=== PATIENT | female | born 1945 | race Caucasian/White ===

== ENCOUNTER 2018-02-06 01:08 | Inpatient (IN) | payer OTHER ==
[~2018-02-06] VITALS: Ht 160 cm; Wt 109.1 kg
[~2018-02-06 01:08] MED LIST: ADVIL200 M2 PO; ALLOPURINOL300 M1 PO; ATORVASTATIN CA20 M1 PO; CIPRO500 M1 PO; CITALOPRAM HBR10 MG PO; CITALOPRAM HYDR10 MG PO; ENALAPRIL MALEA10 M1 PO; ENALAPRIL MALEA10 MG PO; LORAZEPAM0.5 M1 PO; MEGA BIOTIN10000 MCG PO; METRONIDAZOLE500 M1 PO; MONTELUKAST SOD10 MG PO; NYSTATIN100000 U/M PO; PANTOPRAZOLE SO40 M1 PO; PINDOLOL5 MG PO; PROPRANOLOL HCL40 M1 PO; VITAMIN D31000 UNI1 PO
[2018-02-06 01:53] LABS: ABSOLUTE BASOPHIL COUNT 0.1 /CUMM (0.0-0.2); ABSOLUTE EOSINOPHIL COUNT 0.3 /CUMM (0.0-0.7); ABSOLUTE MONOCYTE COUNT 1.2 /CUMM (0.10-0.60); BASOPHIL % 0.3 % (0.0-2.0); EOSINOPHIL % 1.5 % (0-5); GRANULOCYTE % 85.9 % (42.2-75.2); HEMATOCRIT 36.8 % (37-47); MEAN CORPUSCULAR HGB 29.7 PG (27.0-31.0); MEAN CORPUSCULAR HGB CONC 33.5 G/DL (33.0-37.0); MEAN CORPUSCULAR VOLUME 88.6 FL (81.0-99.0); MEAN PLATELET VOLUME 8.9 FL (7.4-10.4); PLATELET COUNT 276 /CUMM (130-400); RBC DISTRIBUTION WIDTH 15.1 % (11.5-14.5); RED BLOOD CELL CT 4.16 /CUMM (4.20-5.40); WHITE BLOOD CELL COUNT 17.5 /CUMM (4.8-10.8)
--- NOTE | 2018-02-06 02:17 | ED GI/GU/ABDOMINAL COMPLAINT ---
History of Present Illness General Chief Complaint: Nausea, Vomiting, Diarrhea Stated Complaint: N/V/D X4 DAYS Source: patient, family, old records Exam Limitations: no limitations Vital Signs & Intake/Output Vital Signs & Intake/Output Vital Signs Date Time Temp Pulse Resp B/P B/P Pulse O2 O2 Flow FiO2 Mean Ox Delivery Rate 02/06 0337 68/48 02/06 0252 82 18 70/38 96 Room Air 02/06 0215 81 18 64/32 Room Air 02/06 0148 99 Room Air 02/06 0130 74/64 02/06 0112 99.7 90 18 93 Room Air Allergies Coded Allergies: Penicillins (HIVES 03/08/17) Reconcile Medications Allopurinol 300 MG TABLET 1 TAB PO DAILY GOUT (Reported) Atorvastatin Calcium 20 MG TABLET 1 TAB PO DAILY CHOLESTEROL (Reported) Biotin (Keith Biotin) 10,000 MCG CAPSULE 1 CAP PO DAILY SUPPLEMENT (Reported) Cholecalciferol (Vitamin D3) (Vitamin D3) 1,000 UNIT CAPSULE 1 CAP PO DAILY SUPPLEMENT (Reported) Ciprofloxacin HCl (Cipro) 500 MG TABLET 1 TAB PO BID gall bladder infection Citalopram Hydrobromide (Citalopram HBr) 10 MG TABLET 1 TAB PO DAILY MENTAL HEALTH (Reported) Enalapril Maleate 10 MG TABLET 1 TAB PO DAILY BP (Reported) Ibuprofen (Advil) 200 MG TABLET 2 TAB PO DAILY PAIN (Reported) Lorazepam 0.5 MG TABLET 0.5 TAB PO QPM SLEEP (Reported) Metronidazole 500 MG TABLET 1 TAB PO TID GALL BLADDER INFECTION Pantoprazole Sodium 40 MG TABLET.DR 1 TAB PO DAILY GI (Reported) Propranolol HCl 40 MG TABLET 1 TAB PO DAILY BP (Reported) Triage Note: PT BIBA FROM HOME C/O DIARRHEA FOR 3X DAYS. PT A&0X3 ON ARRIVAL. PT WAS IN BED TRYING TO GET UP WITH ASSISTANCE FROM DAUGHTER TO USE THE BATHROOM AND PT WAS WEAK AND OBESE AND LOWERED HERSELF TO GROUND. -HEADSTRIKE,- LOC. Triage Nurses Notes Reviewed? yes LMP (ages 10-50): post menopausal ? n Is pt currently ? No Onset: Last week Duration: day(s):, continues in ED, intermittent, waxing and waning Timing: recent history Quality/Severity: burning, cramping, severe Radiation: no radiation Activities at Onset: Bactrim for UTI started 2 days previous Prior Abdominal Problems: none Past Sexual History: Unobtainable at this time Modifying Factors: Worsens With: eating. Associated Symptoms: diarrhea, loss of appetite, weakness HPI: 5 days prior to admission patient started Bactrim for UTI. 3 days prior to admission patient developed frequent loose watery stools whenever eating or drinking. Prior to admission family was attempting to get her up from bed to use the bathroom. She reports being weak and collapsed to floor. She denies fever chills nausea vomiting abdominal pain chest pain cough shortness of breath headache dysuria rash bleeding. Past History Travel History Traveled to [place] past 21 day No Medical History Any Pertinent Medical History? see below for history Neurological: NONE EENT: NONE Cardiovascular: hypertension, hyperlipidemia Respiratory: NONE Gastrointestinal: DIVERTICULITIS Hepatic: NONE Renal: FREQ, UTIS Musculoskeletal: OBESITY Psychiatric: NONE Endocrine: NONE Blood Disorders: NONE Cancer(s): NONE HEATING SYSTEMS INSTALLER/Reproductive: NONE History of MRSA: No History of VRE: No History of CDIFF: No Surgical History Surgical History: cataract removal Psychosocial History Who do you live with Daughter Services at Home None What is your primary language Ukrainian Tobacco Use: Never used Family History Family History, If Any: DAUGHTER Relation not specified for: Cholecystitis Hx Contributory? No Review of Systems Review of Systems Constitutional: Reports: see HPI, weakness. EENTM: Reports: no symptoms. Respiratory: Reports: no symptoms. Cardiovascular: Reports: no symptoms. GI: Reports: see HPI, diarrhea. Genitourinary: Reports: no symptoms. Musculoskeletal: Reports: no symptoms. Skin: Reports: no symptoms. Neurological/Psychological: Reports: no symptoms. Hematologic/Endocrine: Reports: no symptoms. Immunologic/Allergic: Reports: no symptoms. All Other Systems: Reviewed and Negative Physical Exam Physical Exam General Appearance: well developed/nourished, alert, awake, anxious, moderate distress, severe distress, obese Head: atraumatic, normal appearance Eyes: Bilateral: normal appearance, PERRL, EOMI, normal inspection. Ears, Nose, Throat, Mouth: hearing grossly normal, dry mucous membranes Neck: normal inspection, supple, full range of motion, normal alignment Respiratory: normal breath sounds, chest non-tender, no respiratory distress, quiet respiration, lungs clear Cardiovascular: regular rate/rhythm, normal peripheral pulses, norml femoral pulses equa Peripheral Pulses: 4+ carotid (R), 4+ carotid (L) Gastrointestinal: normal bowel sounds, soft, non-tender, no organomegaly Back: normal inspection, normal range of motion, no vertebral tenderness Extremities: normal range of motion, no ligament instability Neurologic/Psych: no motor/sensory deficits, awake, alert, oriented x 3, normal mood/affect, cmo II-XII nml as tested Skin: intact, normal color, warm/dry Core Measures ACS in differential dx? No Sepsis Present: No Sepsis Focused Exam Completed? No Progress Differential Diagnosis: diverticulitis, antibiotic-induced colitis Plan of Care: Orders Procedure Date/time Status LACTIC ACID 02/06 0652 Active Pathway - chart 02/06 06 Active TROPONIN LEVEL 02/06 06 Active CBC WITHOUT DIFFERENTIAL 02/06 614 Active BASIC ELECTROLYTES PLUS BUN&CR 02/06 06 Active CULTURE,STOOL 02/06 06 Active OVA AND PARASITE ANTIGENS 02/06 06 Active BLOOD CULTURE 02/06 0608 Active XRY-PORTABLE CHEST XRAY 02/06 0546 Active C.DIFFICILE 02/06 0544 Active Wound Care/Dressing 02/06 0503 Active Weight 02/06 0503 Active VTE Mechanical Prophylaxis 02/06 0503 Active Vital Signs 02/06 0503 Active Turn and Reposition 02/06 0503 Active Drains/Tubes 02/06 0503 Active Teach/Educate 02/06 0503 Active Skin Integrity Protocol 02/06 0503 Active Skin/Pressure Ulcer Assess (Sk 02/06 0503 Active Precautions 02/06 0503 Active Pain Treatment and Response 02/06 0503 Active Nutritional Intake, Monitor 02/06 0503 Active Isolation 02/06 0503 Active CIWA 02/06 0503 Active Patient Care Conference 02/06 0503 Active Activity/Ambulation 02/06 0503 Active LACTIC ACID 02/06 0352 Active Patient Data 02/06 0305 Active Admit to inpatient 02/06 0301 Active EKG 02/06 0232 Active Gordon, Insertion/Removal/Asses 02/06 0222 Active CULTURE,URINE 02/06 0222 Active Add-on Test (ER Only) 02/06 0216 Active TROPONIN LEVEL 02/06 0144 Complete MAGNESIUM 02/06 0130 Complete LIPASE 02/06 0130 Complete COMPREHENSIVE METABOLIC PANEL 02/06 0130 Complete CBC WITHOUT DIFFERENTIAL 02/06 0130 Complete Intake & Output 02/06 0112 Active VTE Mechanical Prophylaxis 02/06 UNK Active Current Medications Sig/Francoise Start time Last Medication Dose Stop Time Status Admin Heparin Sodium 5,000 UNIT Q8 02/06 1400 UNVr (Porcine) Metronidazole 500 MG IQ8 02/06 0800 AC (Flagyl) N/A 1 UNIT (No Carrier) Magnesium Oxide 400 MG ONE ONE 02/06 0615 UNVr (Mag-Ox) 02/06 06 Norepinephrine 4 MG Q24H 02/06 06 AC (Levophed Drip) Sodium Chloride 250 ML (Normal Saline 0.9%) Vancomycin HCl 500 MG Q6 02/06 06 AC Ceftriaxone Sodium 1,000 MG DAILY 02/06 0530 AC (Rocephin) Laboratory Tests 02/06/18 0144: Anion Gap 19 H, Estimated GFR 7 L, BUN/Creatinine Ratio 12.4, Glucose 81, Calcium 9.2, Magnesium 1.4 L, Total Bilirubin 0.3, AST 19, ALT 28, Alkaline Phosphatase 100, Troponin I < 0.01, Total Protein 6.2 L, Albumin 3.5, Globulin 2.7, Albumin/Globulin Ratio 1.3, Lipase 509 H, CBC w Diff MAN DIFF ORDERED, RBC 4.16 L, MCV 88.6, MCH 29.7, MCHC 33.5, RDW 15.1 H, MPV 8.9, Gran % 85.9 H, Lymphocytes % 5.5 L, Monocytes % 6.8, Eosinophils % 1.5, Basophils % 0.3, Absolute Granulocytes 15.0 H, Segmented Neutrophils 82 H, Band Neutrophils 2, Absolute Lymphocytes 1.0 L, Lymphocytes 10 L, Monocytes 3, Absolute Monocytes 1.2 H, Eosinophils 3, Absolute Eosinophils 0.3, Absolute Basophils 0.1, Platelet Estimate ADEQUATE, Normocytic RBCs VERIFIED, Normochromic RBCs VERIFIED Microbiology 02/07 608 STOOL: Cryptosporidium Antigen - ORD 02/07 608 STOOL: Giardia Antigen (CANDACE) - ORD 02/07 608 STOOL: Stool Culture - ORD 02/07 608 BLOOD: Blood Culture - ORD 02/07 608 BLOOD: Blood Culture - ORD 02/06 05 STOOL: Clostridium difficile Toxin A & B - ORD 02/06 0248 URINE ROUT: Urine Culture - RECD Diagnostic Imaging: Viewed by Me: CT Scan. Discussed w/RAD: CT Scan. Initial ED EKG: normal axis, normal intervals, normal p-waves, normal QRS complex, normal sinus rhythm, ST depression (diffuse) Prior EKG: changed Rhythm Strip: normal sinus rhythm Departure Departure Time of Disposition: 249 Disposition: STILL A PATIENT Condition: Stable Clinical Impression Primary Impression: Antibiotic-induced colitis Secondary Impressions: Acute hypotension, Acute myocardial ischemia, Acute renal failure, Elevated lipase, Hypomagnesemia, Hyponatremia, Leukocytosis Referrals: Lauren VERA,Handy Bee (PCP/Family) Departure Forms: Customer Survey General Discharge Information Admission Note Spoke With: Darvin Wadsworth MD Documentation of Exam: Documentation of any treatments & extenuating circumstances including Concerns Regarding Discharge (functional status, medication knowledge or non-compliance, living conditions, etc.) that warrant an admission rather than observation: IV hydration ICU monitoring serial lab exam monitor I and O medication adjustment renal evaluation physical therapy continuing care discharge planning Critical Care Note Critical Care Note Critical Care Time: 30-74 min (65)
--- NOTE | 2018-02-06 04:34 | CT SCAN REPORT ---
EXAMINATION: CT ABDOMEN AND PELVIS WITHOUT CONTRAST CLINICAL INFORMATION: UTI. Diarrhea. COMPARISON: March 09, 2017. TECHNIQUE: Contiguous axial thin section helical images of the abdomen and pelvis were performed without oral or IV contrast. The data set was reformatted in the coronal and sagittal planes and reviewed on an independent workstation. DLP: 1079 mGy-cm. FINDINGS: There is mild dependent bibasilar atelectasis. The visualized lung bases are otherwise clear. The visualized portions of the heart are unremarkable. The liver is of normal size and attenuation without focal lesions nor intrahepatic biliary ductal dilation. The patient is status post cholecystectomy. Surgical clips are present. The spleen, pancreas, adrenal glands are unremarkable. Both kidneys are of normal size and attenuation without hydronephrosis or nephrolithiasis. There is no abdominal free fluid. There is neither mesenteric nor retroperitoneal lymphadenopathy. There is colonic diverticulosis with fat stranding identified about the ascending colon, hepatic flexure, splenic flexure and proximal descending colon. Otherwise, unremarkable unopacified loops of small and large bowel are identified. There is no pelvic free fluid. Urinary bladder is partially filled with a Gordon catheter in place. There is neither pelvic nor inguinal lymphadenopathy. Bone windows: Neither sclerotic nor lytic bone lesions are identified. IMPRESSION: Colonic diverticulosis and diverticulitis without drainable fluid collections. Status post cholecystectomy.
--- NOTE | 2018-02-06 05:33 | Procedure ---
Dayami Ojeda 02/06/18 0532: Minor Surgical Procedure Note Date of Procedure: 02/06/18 Procedure Note: Indication: Hemodynamic monitoring/Intravenous access Technique: A time-out was completed verifying correct patient, procedure, site, positioning , and special equipment if applicable. The patient was placed in a dependent position appropriate for central line placement based on the vein to be cannulated. The patients right neck was prepped and draped in sterile fashion. 1% Lidocaine was used to anesthetize the surrounding skin area. A triple lumen 7 -Kitt[place] x 20 cm was introduced into the the internal jugular vein using the Seldinger technique under ultrasound guidance. The catheter was threaded smoothly over the guide wire and appropriate blood return was obtained. Each lumen of the catheter was evacuated of air and flushed with sterile saline. The catheter was then sutured in place to the skin and a sterile dressing applied. Perfusion to the extremity distal to the point of catheter insertion was checked and found to be adequate. Thierry Crow, supervised the entire procedure. Estimated Blood Loss: minimum The patient tolerated the procedure well and there were no complications. Thierry Arango 02/11/18 0954: Minor Surgical Procedure Note Procedure Note: R IJ triple-lumen catheter placed under my supervision with direct visualization using ultrasound. No complications. No pneumothorax. Postprocedural x-ray shows the right IJ catheter is in appropriate position, there is no pneumothorax. No significant hematoma on exam. Patient tolerated well without complications. Discussed with Dr. Taylor
--- NOTE | 2018-02-06 05:36 | History & Physical ---
Virgil Sparrow 02/06/18 0535: General Information and HPI MD Statement: I have seen and personally examined VANNESA FRAUSTO and documented this H&P. The patient is a 72 year old F who presented with a patient stated chief complaint of [diarrhea and hypotension]. Source of Information: patient, family Exam Limitations: no limitations, clinical condition History of Present Illness: The patient is a 72 years old lady who has a PMHx of HTN, HLP, multiple UTIs, and Diverticulitis and his here because of diarrhea and hypotension that aggreviated today. She was diagnosed with UTI and started Bactrim from 5 days ago, She had diarrhea from 3 days ago. She had ongoing severe diarrhea all day for the last two days. Her status worsened from this morning, she had dizziness and was lightheaded. So her daughter brought her in for evaluation. She had BP of 68/48 in ER after being hydrated with 6 litters with bilateral large bore lines. So a central line was inserted for her. She was started Levophed. She denies any abdominal pain, N/V, or fever. She reports intermittent chills. PMHx: HTN, HLP, Diverticulosis, Recurrrent UTI, Labs: Na: 128, K: 4.6 BUN: 73, Cr: 5.9 Lipase: 509 Allergies/Medications Home Med list Allopurinol 300 MG TABLET 1 TAB PO DAILY GOUT (Reported) Atorvastatin Calcium 20 MG TABLET 1 TAB PO DAILY CHOLESTEROL (Reported) Biotin (Keith Biotin) 10,000 MCG CAPSULE 1 CAP PO DAILY SUPPLEMENT (Reported) Cholecalciferol (Vitamin D3) (Vitamin D3) 1,000 UNIT CAPSULE 1 CAP PO DAILY SUPPLEMENT (Reported) Ciprofloxacin HCl (Cipro) 500 MG TABLET 1 TAB PO BID gall bladder infection Citalopram Hydrobromide (Citalopram HBr) 10 MG TABLET 1 TAB PO DAILY MENTAL HEALTH (Reported) Enalapril Maleate 10 MG TABLET 1 TAB PO DAILY BP (Reported) Ibuprofen (Advil) 200 MG TABLET 2 TAB PO DAILY PAIN (Reported) Lorazepam 0.5 MG TABLET 0.5 TAB PO QPM SLEEP (Reported) Metronidazole 500 MG TABLET 1 TAB PO TID GALL BLADDER INFECTION Pantoprazole Sodium 40 MG TABLET.DR 1 TAB PO DAILY GI (Reported) Propranolol HCl 40 MG TABLET 1 TAB PO DAILY BP (Reported) Compliance With Home Meds: GOOD Past History Travel History Traveled to [place] past 21 day No Medical History Neurological: NONE EENT: NONE Cardiovascular: hypertension, hyperlipidemia Respiratory: NONE Gastrointestinal: DIVERTICULITIS Hepatic: NONE Renal: FREQ, UTIS Musculoskeletal: OBESITY Psychiatric: NONE Endocrine: NONE Blood Disorders: NONE Cancer(s): NONE PLASTIC PRINTER/Reproductive: NONE History of MRSA: No History of VRE: No History of CDIFF: No Surgical History Surgical History: cataract removal Past Family/Social History Family History Relations & Conditions if any DAUGHTER Relation not specified for: Cholecystitis Psychosocial History Services at Home: None Functional Ability ADLs Independent: dressing, eating, toileting, bathing. Ambulation: independent Sexual History Past Sexual History Unobtainable at this time Review of Systems Review of Systems Constitutional: Reports: see HPI. EENTM: Reports: see HPI. Cardiovascular: Reports: see HPI. Respiratory: Reports: see HPI. GI: Reports: see HPI. Genitourinary: Reports: see HPI. Musculoskeletal: Reports: see HPI. Skin: Reports: see HPI. Neurological/Psychological: Reports: see HPI. Hematologic/Endocrine: Reports: see HPI. Immunologic/Allergic: Reports: see HPI. Exam & Diagnostic Data Last 24 Hrs of Vital Signs/I&O Vital Signs Date Time Temp Pulse Resp B/P B/P Pulse O2 O2 Flow FiO2 Mean Ox Delivery Rate 02/06 0337 68/48 02/06 0252 82 18 70/38 96 Room Air 02/06 0215 81 18 64/32 Room Air 02/06 0148 99 Room Air 02/06 0130 74/64 02/06 0112 99.7 90 18 93 Room Air Intake & Output 02/06 1600 02/06 0800 02/06 0000 Intake Total Output Total Balance Patient 350 lb Weight Weight Estimated Measurement Method Physical Exam General Appearance Alert, Oriented X3, Cooperative, Moderate Distress Skin No Rashes, No Breakdown Skin Temp/Moisture Exam: Cool/Dry Sepsis Skin Exam (color): Normal for Ethnicity, Pale HEENT Atraumatic, PERRLA, EOMI Neck Supple, No JVD, No LAD Cardiovascular Regular Rate, Normal S1, Normal S2 Lungs Clear to Auscultation, Normal Air Movement Abdomen Normal Bowel Sounds, Soft, No Tenderness Neurological Normal Speech Extremities No Clubbing, No Cyanosis (Weak pulses) Sepsis Peripheral Pulse Location: Dorsalis Pedis Sepsis Peripheral Pulse Exam: Weak Sepsis Cap Refill Exam: >2 sec Assessment/Plan Assessment: Ms. Frausto is a 72 years old lady with PMHx of recurrent UTIs, HTN, and HLP who was here with severe diarrhea and hypotension. Since her diarrhea was started after using bactrim presumably the diagnosis is fulminant C diff, But since she has sepsis symptoms she should be also emperically treated with IV ceftriaxone, Metronidazole and PO Vancomycin. The increase in her Lipase and Cr and BUN is most probably due to hypoperfusion ischemia caused in her multiple systems. She should be aggressively hydrated and closely monitored in the ICU. Central line was placed for her and levophed was started for her. Pancultures should be sent and once she is stable Abd CT should be done for her. She also has T inv in inf Leads (II, III, avf) and ant. leads (V2-6) which is due to ischemia caused by hypoperfusion, so we will do serial ECGs and Trops as well. Hopefully her condition will improve with aggressive hydration and levephed and antibiotic treatment. As Ranked By This Provider Problem List: 1. Acute renal failure 2. Hypomagnesemia 3. Hyponatremia 4. Antibiotic-induced colitis 5. Elevated lipase 6. Acute myocardial ischemia 7. Acute hypotension 8. Sepsis Core Measures/Misc (04/04) Acute Coronary Syndrome ACS Diagnosis: Yes No Beta-Gene d/t Hypotension Congestive Heart Failure Congestive Heart Failure Diagnosis No Cerebrovascular Accident CVA/TIA Diagnosis: No VTE (View Protocol) VTE Risk Factors Age>40 No Mechanical VTE Prophylaxis d/t N/A MechProphylax Ordered No VTE Pharm Prophylaxis d/t NA PharmProphylax ordered Sepsis (View protocol) Sepsis Present: Yes If YES complete Sepsis Event Note If YES complete Sepsis Event Note Dayami Ojeda 02/06/18 0602: Core Measures/Misc (04/04) Acute Coronary Syndrome ACS Diagnosis: No Congestive Heart Failure Congestive Heart Failure Diagnosis No Cerebrovascular Accident CVA/TIA Diagnosis: No VTE (View Protocol) VTE Risk Factors Age>40 No Mechanical VTE Prophylaxis d/t N/A MechProphylax Ordered No VTE Pharm Prophylaxis d/t NA PharmProphylax ordered Sepsis (View protocol) Sepsis Present: Yes If YES complete Sepsis Event Note If YES complete Sepsis Event Note Inpatient Sepsis Exam Sepsis Cardiac Exam: Regular Rate/Rhythm Sepsis Resp Exam: CTA Sepsis Cap Refill Exam: <2 Sec Sepsis Peripheral Pulse Exam: Normal Sepsis Peripheral Pulse Location: Radial Sepsis Skin Color Exam: Normal for Ethnicity Skin Temp/Moisture Exam: Cool/Dry Resident Review Statement Resident Statement: examined this patient, discussed with grad intern, agreed with grad intern Other Findings: Patient is 72-year-old female with past medical history of hypertension, hyperlipidemia, diverticulitis, recurrent UTIs, was brought in by family with a chief complaint of severe diarrhea since past 3 days. Patient stated that she was in her usual state of health until last week when she developed symptoms of burning micturition, urgency and hesitancy. She went to her primary care physician and was given Bactrim which was on 02/01/18. Patient states that 2 days after that, she developed severe diarrhea and she was going the entire day. Last night the patient felt dizzy and lightheaded however did not fell. So her daughter brought her in today for diarrhea and weakness. Patient denies any abdominal discomfort, nausea or vomiting. She does report of intermittent chills however denies any fever. Patient continued to be hypotensive while in ER, she came in with a blood pressure 74/64, and the lowest she went to was 54/27, at that time a decision was made to put in a triple-lumen IN her for Levophed. Patient had a CT abdomen and pelvis which was significant for Colonic diverticulosis and diverticulitis without drainable fluid collections. Assessment and plan. Patient developed diarrhea 2 days after taking Bactrim for UTI, her diarrhea could be secondary to C. difficile caused by antibiotic. Will check her stool C. difficile, patient is very hypotensive and has elevated creatinine of 5.9, and leukocytosis of 17.5, she falls into the category of severe C. difficile. After confirming the position of central line, will start her on Levophed to maintain a systolic blood pressure greater than 90. We'll also send stool for ova culture and parasites. Will get blood but cultures into 2. Will start her on by mouth vancomycin and IV metronidazole. Patient also has underlying UTI, will start her on ceftriaxone for that. Although the patient is allergic to penicillin, but she has tolerated ceftriaxone well in the past. ID consult in a.m. for severe C. difficile. Lactic acid is still pending. On EKG, patient had diffuse ST depression on her EKG, however her first set of troponin is negative. We'll continue to trend her EKG and troponin for total of [address] depression could be due to demand ischemia caused by severe hypotension. Patient is in acute kidney injury, with an elevated creatinine of 5.9, she's also oliguric, her baseline creatinine is 0.8, currently she is mentating well and does not fall into any category of emergent dialysis, will get renal consult in a.m. and continue to follow her creatinine closely. Patient also had elevated lipase, CT abdomen that was done showed unremarkable pancreas, will continue to hydrate her in follow-up. She got 8 L of IV fluid so far for her hypotension. DVT prophylaxis subcutaneous heparin Patient is full code. Darvin Wadsworth MD 02/06/18 0744: General Information and HPI MD Statement: I have seen and personally examined VANNESA FRAUSTO and documented this H&P. The patient is a 72 year old F who presented with a patient stated chief complaint of [diarrhea and hypotension]. Source of Information: patient, family Exam Limitations: no limitations Allergies/Medications Allergies: Coded Allergies: Penicillins (HIVES 03/08/17) Past History Medical History Cardiovascular: hypertension, hyperlipidemia Gastrointestinal: DIVERTICULITIS Renal: FREQ, UTIS Musculoskeletal: OBESITY Psychiatric: anxiety, depression Surgical History Surgical History: cholecystectomy, cataract removal Past Family/Social History Psychosocial History Smoking Status: Never Smoked ETOH Use: denies use Illicit Drug Use: denies illicit drug use Employment History Employment Retired Review of Systems Review of Systems Constitutional: Denies: see HPI. Exam & Diagnostic Data Last 24 Hrs of Vital Signs/I&O Vital Signs Date Time Temp Pulse Resp B/P B/P Pulse O2 O2 Flow FiO2 Mean Ox Delivery Rate 02/06 0337 68/48 02/06 0252 82 18 70/38 96 Room Air 02/06 0215 81 18 64/32 Room Air 02/06 0148 99 Room Air 02/06 0130 74/64 02/06 0112 99.7 90 18 93 Room Air Intake & Output 02/06 0800 02/06 0000 02/05 1600 Intake Total Output Total Balance Patient 350 lb Weight Weight Estimated Measurement Method Physical Exam General Appearance Alert, Oriented X3, Cooperative, Moderate Distress Skin No Rashes, No Breakdown Skin Temp/Moisture Exam: Warm/Dry Sepsis Skin Exam (color): Normal for Ethnicity HEENT Atraumatic, PERRLA, EOMI Neck Supple, No JVD Lymphatic Axillary nl, Cervical nl Cardiovascular Regular Rate, Normal S1, Normal S2 Lungs Clear to Auscultation, Normal Air Movement Abdomen Soft, No Tenderness Neurological Normal Speech Extremities No Clubbing, No Cyanosis Sepsis Peripheral Pulse Location: Dorsalis Pedis Sepsis Peripheral Pulse Exam: Weak Sepsis Cap Refill Exam: <2 Sec Last 24 Hrs of Labs/Brennan: Laboratory Tests 02/06/18624: Lactic Acid 0.7 02/06/18624: Anion Gap 14, Estimated GFR 11 L, BUN/Creatinine Ratio 14.0, Troponin I < 0.01, CBC w Diff NO MAN DIFF REQ, RBC 3.64 L, MCV 89.1, MCH 29.6, MCHC 33.2, RDW 15.6 H, MPV 8.6, Gran % 89.1 H, Lymphocytes % 6.2 L, Monocytes % 3.8, Eosinophils % 0.6, Basophils % 0.3, Absolute Granulocytes 12.3 H, Absolute Lymphocytes 0.9 L, Absolute Monocytes 0.5, Absolute Eosinophils 0.1, Absolute Basophils 0 02/06/18 0144: Anion Gap 19 H, Estimated GFR 7 L, BUN/Creatinine Ratio 12.4, Glucose 81, Calcium 9.2, Magnesium 1.4 L, Total Bilirubin 0.3, AST 19, ALT 28, Alkaline Phosphatase 100, Troponin I < 0.01, Total Protein 6.2 L, Albumin 3.5, Globulin 2.7, Albumin/Globulin Ratio 1.3, Lipase 509 H, CBC w Diff MAN DIFF ORDERED, RBC 4.16 L, MCV 88.6, MCH 29.7, MCHC 33.5, RDW 15.1 H, MPV 8.9, Gran % 85.9 H, Lymphocytes % 5.5 L, Monocytes % 6.8, Eosinophils % 1.5, Basophils % 0.3, Absolute Granulocytes 15.0 H, Segmented Neutrophils 82 H, Band Neutrophils 2, Absolute Lymphocytes 1.0 L, Lymphocytes 10 L, Monocytes 3, Absolute Monocytes 1.2 H, Eosinophils 3, Absolute Eosinophils 0.3, Absolute Basophils 0.1, Platelet Estimate ADEQUATE, Normocytic RBCs VERIFIED, Normochromic RBCs VERIFIED Microbiology 02/07 608 STOOL: Cryptosporidium Antigen - ORD 07/22 0608 STOOL: Giardia Antigen (BRENNAN) - ORD 02/06 0608 STOOL: Stool Culture - ORD 02/06 0608 BLOOD: Blood Culture - ORD 02/06 0608 BLOOD: Blood Culture - ORD 02/06 0544 STOOL: Clostridium difficile Toxin A & B - ORD 02/06 0248 URINE ROUT: Urine Culture - RECD Core Measures/Misc (04/04) Sepsis (View protocol) If YES complete Sepsis Event Note If YES complete Sepsis Event Note Attending MD Review Statement Attending Statement Attending MD Statement: examined this patient, discuss w/resident/PA/AERIAL SURVEY TECHNICIAN, agreed w/resident/PA/AERIAL SURVEY TECHNICIAN, amended to note Attending Assessment/Plan: This patient is a 72-year-old white female with a significant past medical history for hypertension, lipidemia, diverticulosis, gout, depression/anxiety and osteo-arthritis. She presented to the emergency department with a four-day history of nausea vomiting diarrhea. She was started on Bactrim 5 days prior to admission for urinary tract infection. She then developed frequent loose watery stools. Upon evaluation in the emergency department she was found to have an elevated white blood cell count to 17.5 and significant hypotension. Her BUN is 73 and creatinine is 5.9. Lactic acid is pending. CT scan of her abdomen demonstrates colonic diverticulosis and diverticulitis without drainable fluid collections. The patient was given a dose of ceftriaxone and started on fulminant C. difficile protocol with IV metronidazole and oral vancomycin. Cultures pending. Currently in the unit with a central line placed this am.
[2018-02-06 06:34] LABS: ABSOLUTE BASOPHIL COUNT 0 /CUMM (0.0-0.2); ABSOLUTE EOSINOPHIL COUNT 0.1 /CUMM (0.0-0.7); ABSOLUTE GRANULOCYTE CT 12.3 /CUMM (1.4-6.5); ABSOLUTE LYMPH COUNT 0.9 /CUMM (1.2-3.4); ABSOLUTE MONOCYTE COUNT 0.5 /CUMM (0.10-0.60); BASOPHIL % 0.3 % (0.0-2.0); EOSINOPHIL % 0.6 % (0-5); GRANULOCYTE % 89.1 % (42.2-75.2); HEMATOCRIT 32.4 % (37-47); MEAN CORPUSCULAR HGB 29.6 PG (27.0-31.0); MEAN CORPUSCULAR HGB CONC 33.2 G/DL (33.0-37.0); MEAN CORPUSCULAR VOLUME 89.1 FL (81.0-99.0); MEAN PLATELET VOLUME 8.6 FL (7.4-10.4); PLATELET COUNT 224 /CUMM (130-400); RBC DISTRIBUTION WIDTH 15.6 % (11.5-14.5); RED BLOOD CELL CT 3.64 /CUMM (4.20-5.40)
[2018-02-06 07:02] LABS: WHITE BLOOD CELL COUNT 13.8 /CUMM (4.8-10.8)
--- NOTE | 2018-02-06 07:14 | RADIOLOGY REPORT ---
EXAMINATION: XR PORTABLE CHEST CLINICAL INFORMATION: Check central line position COMPARISON: Previous chest x-ray February 2017 TECHNIQUE: Portable frontal view of the chest was obtained. FINDINGS: The cardiac and mediastinal contours are normal. There is a right jugular line with tip projecting over the SVC. The lungs are clear. There is no pleural effusion or pneumothorax. IMPRESSION: Satisfactory position of right jugular line.
[2018-02-06 08:00] VITALS: BP 80/50
--- NOTE | 2018-02-06 08:32 | PN- Resident CRCU ---
Subjective HPI/CRCU Issues: Suspected C.diff diarrhea 24 Hour Events: A central line was placed on arrival to the ICU due to hypotension refractory to IVF resuscitation. Currently on Levophed @ 7mcg/hr. Continues to have loose bowel movements. States she had 3-4 episdoes since she came to the hospital. Objective Vital Signs & I&O Last 8 Hrs of Vitals and I&O: Intake & Output 02/06 1600 Intake Total Output Total Balance Patient 240 lb Weight Weight Bed scale Measurement Method Exam General Appearance: alert, awake, comfortable, mild distress Head: atraumatic, normal appearance Respiratory: normal breath sounds, chest non-tender Cardiovascular: regular rate/rhythm Gastrointestinal: soft, non-tender Extremities: no edema Cranial Nerves: normal hearing, normal speech Skin: intact, normal color Skin Temp/Moisture Exam: Warm/Dry Sepsis Skin Exam (color): Normal for Ethnicity Current Medications: Current Medications Sig/Francoise Start time Last Medication Dose Route Stop Time Status Admin Ceftriaxone Sodium 1,000 MG DAILY 02/06 0530 DC 02/06 IV 0918 Heparin Sodium 5,000 UNIT Q8 02/06 1400 AC (Porcine) SC Insulin Aspart 0 TIDAC 02/06 1200 AC SC Magnesium Oxide 400 MG ONE ONE 02/06 0615 DC 02/06 PO 02/06 0616 0922 Metronidazole 500 MG IQ8 02/06 0800 AC 02/06 N/A 1 UNIT IV 0917 Norepinephrine 4 MG Q24H 02/06 0600 AC 02/06 Sodium Chloride 250 ML IV 0918 Sodium Chloride 1,000 ML BOLUS ONE 02/06 0330 DC 02/06 IV 02/06 0429 0342 Sodium Chloride 1,000 ML BOLUS ONE 02/06 0330 DC 02/06 IV 02/06 0429 0342 Sodium Chloride 1,000 ML BOLUS ONE 02/06 0300 DC 02/06 IV 02/06 0359 0304 Sodium Chloride 1,000 ML BOLUS ONE 02/06 0300 DC 02/06 IV 02/06 0359 0304 Sodium Chloride 1,000 ML BOLUS ONE 02/06 0230 DC 02/06 IV 02/06 0329 0233 Sodium Chloride 1,000 ML BOLUS ONE 02/06 0230 DC 02/06 IV 02/06 0329 0233 Sodium Chloride 1,000 ML BOLUS ONE 02/06 0130 DC 02/06 IV 02/06 0229 0149 Sodium Chloride 1,000 ML BOLUS ONE 02/06 0130 DC 02/06 IV 02/06 0229 0149 Vancomycin HCl 500 MG Q6 02/06 0600 AC 02/06 PO 0917 Impression/Plan Impression/Problem List Impression: 72-year-old female with past medical history of hypertension, hyperlipidemia, diverticulitis, recurrent UTIs was brought in by family with chief complaint of severe diarrhea since past 3-4 days. Assessment: 1. Sepsis - Hypotension requiring pressors, leukocytosis with likely C.diff infection 2. Suspected C.diff 3. Non-anion gap metabolic acidosis likely due to diarrhea 4. JASMEET - likely due to dehydration and lisinopril 5. Hyponatremia - improving 6. History of Hypertension and Hyperlipidemia Plan: * Continue monitoring in the ICU for now. * No need for further IVF. Patient already received 8L of NS since admission. Her CVP is 12. Her urine output is good. If urine output drops can start her on IVF with NS @ 75ml/hr * Continue Norepinephrine and taper down as tolerated. * Await C.diff results. If negative will pursue PCR due to high suspicion of C.diff. * Follow up blood cultures. * Continue oral Vancomycin 500mg q6 and IV metronidazole 500mg q8. * Start Bicarb drip 150meq in D5W. Will bolus 500cc and continue it on 75ml/hr then. * Hold lisinopril * Trend renal function * Diet: Regular * DVT Prophylaxis: SC Heparin * Code Status: Full Code Problem List: 1. Sepsis Pain Ratin Tomorrow's Labs & Rationales: CBC, ICU bundle Plan DVT/Prophylaxis: mechanical, pharmacological
--- NOTE | 2018-02-06 11:30 | PN- CRCU ---
Subjective HPI/Critical Care Issues: The patient is a 72 years old lady who has a PMHx of HTN, HLP, multiple UTIs, and Diverticulitis and his here because of diarrhea and hypotension that aggreviated today. She was diagnosed with UTI and started Bactrim from 5 days ago, She had diarrhea from 3 days ago. She had ongoing severe diarrhea all day for the last two days. Her status worsened from this morning, she had dizziness and was lightheaded. So her daughter brought her in for evaluation. She had BP of 68/48 in ER after being hydrated with 6 litters with bilateral large bore lines. So a central line was inserted for her. She was started Levophed. She denies any abdominal pain, N/V, or fever. She reports intermittent chills. In the unit she continues to be on levofed and has diarrhea and now appears to be resusitated and improved with adequate urine out put Objective Current Medications: Current Medications Sig/Francoise Start time Last Medication Dose Route Stop Time Status Admin Ceftriaxone Sodium 1,000 MG DAILY 02/06 0530 AC 02/06 IV 0918 Heparin Sodium 5,000 UNIT Q8 02/06 1400 AC (Porcine) SC Magnesium Oxide 400 MG ONE ONE 02/06 0615 DC 02/06 PO 02/06 0616 0922 Metronidazole 500 MG IQ8 02/06 0800 AC 02/06 N/A 1 UNIT IV 0917 Norepinephrine 4 MG Q24H 02/06 0600 AC 02/06 Sodium Chloride 250 ML IV 0918 Sodium Chloride 1,000 ML BOLUS ONE 02/06 0330 DC 02/06 IV 02/06 0429 0342 Sodium Chloride 1,000 ML BOLUS ONE 02/06 0330 DC 02/06 IV 02/06 0429 0342 Sodium Chloride 1,000 ML BOLUS ONE 02/06 0300 DC 02/06 IV 02/06 0359 0304 Sodium Chloride 1,000 ML BOLUS ONE 02/06 0300 DC 02/06 IV 02/06 0359 0304 Sodium Chloride 1,000 ML BOLUS ONE 02/06 0230 DC 02/06 IV 02/06 0329 0233 Sodium Chloride 1,000 ML BOLUS ONE 02/06 0230 DC 02/06 IV 02/06 0329 0233 Sodium Chloride 1,000 ML BOLUS ONE 02/06 0130 DC 02/06 IV 02/06 0229 0149 Sodium Chloride 1,000 ML BOLUS ONE 02/06 0130 DC 07/22 IV 02/06 0229 0149 Vancomycin HCl 500 MG Q6 02/06 0600 AC 02/06 PO 0917 Vital Signs & I&O Last 24 Hrs of Vitals and I&O: Vital Signs Date Time Temp Pulse Resp B/P B/P Pulse O2 O2 Flow FiO2 Mean Ox Delivery Rate 02/06 0918 81 80/40 02/06 0800 96.8 84 22 80/50 99 Room Air 02/06 0337 68/48 02/06 0252 82 18 70/38 96 Room Air 02/06 0215 81 18 64/32 Room Air 02/06 0148 99 Room Air 02/06 0130 74/64 02/06 0112 99.7 90 18 93 Room Air Intake & Output 02/06 1600 02/06 0800 02/06 0000 Intake Total 8000 Output Total 200 Balance 7800 Intake, IV 8000 Output, Urine 200 Patient 240 lb 240 lb Weight Weight Bed scale Bed scale Measurement Method Impression/Plan Impression/Plan Impression/Plan: General Appearance Alert, Oriented X3, Cooperative, Moderate Distress Skin No Rashes, No Breakdown Skin Temp/Moisture Exam: Cool/Dry Sepsis Skin Exam (color): Normal for Ethnicity, Pale HEENT Atraumatic, PERRLA, EOMI, tle in place Neck Supple, No JVD, No LAD Cardiovascular Regular Rate, Normal S1, Normal S2 Lungs Clear to Auscultation, Normal Air Movement Abdomen Normal Bowel Sounds, Soft, No Tenderness Neurological Normal Speech Extremities No Clubbing, No Cyanosis (Weak pulses) This patient is a 72-year-old white female with a significant past medical history for hypertension, lipidemia, diverticulosis, gout, depression/anxiety and osteo-arthritis. She presented to the emergency department with a four-day history of nausea vomiting diarrhea. She was started on Bactrim 5 days prior to admission for urinary tract infection. She then developed frequent loose watery stools. Upon evaluation in the emergency department she was found to have an elevated white blood cell count to 17.5 and significant hypotension. Her BUN is 73 and creatinine is 5.9. Lactic acid is pending. CT scan of her abdomen demonstrates colonic diverticulosis and diverticulitis without drainable fluid collections. The patient was given a dose of ceftriaxone and started on fulminant C. difficile protocol with IV metronidazole and oral vancomycin. Cultures pending. Currently in the unit with a central line placed this am. ISSUES Ongoing diarrhea highly suggestive of C. difficile, with sepsis, hypotension and multiple organ dysfunction Acute renal failure due to dehydration/ diarrhea/ compounded by RASS issues (pt was on lisinopril) History of diverticulosis with no significant diverticulitis History of anxiety and depression which appears stable Significant anion gap acidosis with no significant lactic acidosis probably related to profound diarrhea Diabetes Anemia of unknown etiology History of hypertension, hyperlipidemia, recurrent UTI in the past Morbid obesity with severe DJD pending knee replacement PLAN/RECOMMENDATION Continue IV fluids Check CVP At the CVP is more than 12 and reduce his IV fluids Reduce norepinephrine to keep mean arterial pressure more than 65 Await cultures Hold ceftriaxone Fingerstick glucose and cover with sliding scale Hold PEREZ inhibitor and other antihypertensives We will follow closely Patient critically ill total time spent 38 minutes
--- NOTE | 2018-02-06 12:31 | Cons- Nephrology ---
General Information and HPI Consulting Request Date of Consult: 02/06/18 Requested By: Darvin Wadsworth MD Reason for Consult: JASMEET & met acid Source of Information: patient, old records Exam Limitations: no limitations History of Present Illness: 72 yr old WF w mult med problems including obesity, HTN, & DJD admit this morning w ~ 5 days intractable diarrhea after oral antibiotic for presumed lower UTI. Found hypotensive requiring volume reuscitation & IV NE as started on Flagyl for presumed C dif colitis. Baseline normal renal function w Cr 0.8 in 2017 & found increasd 5.9 associated w hyponatremia & met acid. Hemodynamics improving w increasing u/o now. Outpt meds included ACEI but denies NSAIDs despite on home med list --> stopped ibuprofen ~ 2 weeks ago in anticippation of upcoming knee replacement. No record IV contrast. Now awake w/o uremic sx. No SOB. Has hx lower UTIs but no clear hx of previous pyelo or stones. No DM. Allergies/Medications Allergies: Coded Allergies: Penicillins (HIVES 03/08/17) Home Med List: Allopurinol 300 MG TABLET 1 TAB PO DAILY GOUT (Reported) Atorvastatin Calcium 20 MG TABLET 1 TAB PO DAILY CHOLESTEROL (Reported) Biotin (Keith Biotin) 10,000 MCG CAPSULE 1 CAP PO DAILY SUPPLEMENT (Reported) Cholecalciferol (Vitamin D3) (Vitamin D3) 1,000 UNIT CAPSULE 1 CAP PO DAILY SUPPLEMENT (Reported) Ciprofloxacin HCl (Cipro) 500 MG TABLET 1 TAB PO BID gall bladder infection Citalopram Hydrobromide (Citalopram HBr) 10 MG TABLET 1 TAB PO DAILY MENTAL HEALTH (Reported) Enalapril Maleate 10 MG TABLET 1 TAB PO DAILY BP (Reported) Ibuprofen (Advil) 200 MG TABLET 2 TAB PO DAILY PAIN (Reported) Lorazepam 0.5 MG TABLET 0.5 TAB PO QPM SLEEP (Reported) Metronidazole 500 MG TABLET 1 TAB PO TID GALL BLADDER INFECTION Pantoprazole Sodium 40 MG TABLET.DR 1 TAB PO DAILY GI (Reported) Propranolol HCl 40 MG TABLET 1 TAB PO DAILY BP (Reported) Current Medications: Current Medications Sig/Francoise Start time Last Medication Dose Route Stop Time Status Admin Ceftriaxone Sodium 1,000 MG DAILY 02/06 0530 DC 02/06 IV 0918 Heparin Sodium 5,000 UNIT Q8 02/06 1400 AC (Porcine) SC Insulin Aspart 0 TIDAC 02/06 1200 AC SC Magnesium Oxide 400 MG ONE ONE 02/06 0615 DC 02/06 PO 02/06 0616 0922 Metronidazole 500 MG IQ8 02/06 0800 AC 02/06 N/A 1 UNIT IV 0917 Norepinephrine 4 MG Q24H 02/06 0600 AC 02/06 Sodium Chloride 250 ML IV 0918 Sodium Bicarbonate 150 MEQ ONCE ONE 02/06 1215 AC Dextrose/Water 1,000 ML IV 02/06 1414 Sodium Bicarbonate 150 MEQ Q13H 02/06 1215 AC Dextrose/Water 1,000 ML IV Sodium Chloride 1,000 ML BOLUS ONE 02/06 0330 DC 02/06 IV 02/06 0429 0342 Sodium Chloride 1,000 ML BOLUS ONE 02/06 0330 DC 02/06 IV 02/06 0429 0342 Sodium Chloride 1,000 ML BOLUS ONE 02/06 0300 DC 02/06 IV 02/06 0359 0304 Sodium Chloride 1,000 ML BOLUS ONE 02/06 0300 DC 02/06 IV 02/06 0359 0304 Sodium Chloride 1,000 ML BOLUS ONE 02/06 0230 DC 02/06 IV 02/06 0329 0233 Sodium Chloride 1,000 ML BOLUS ONE 02/06 0230 DC 02/06 IV 02/06 0329 0233 Sodium Chloride 1,000 ML BOLUS ONE 02/06 0130 DC 02/06 IV 02/06 0229 0149 Sodium Chloride 1,000 ML BOLUS ONE 02/06 0130 DC 02/06 IV 02/06 0229 0149 Vancomycin HCl 500 MG Q6 02/06 0600 AC 02/06 PO 1157 Review of Systems Review of Systems Constitutional: Reports: weakness. EENTM: Reports: no symptoms. Cardiovascular: Reports: no symptoms. Respiratory: Reports: no symptoms. GI: Reports: diarrhea. Genitourinary: Reports: no symptoms. Musculoskeletal: Reports: joint pain. Skin: Reports: no symptoms. Neurological/Psychological: Reports: no symptoms. Hematologic/Endocrine: Reports: no symptoms. Immunologic/Allergic: Reports: no symptoms. 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 Home Services at Home: None Smoking Status: Never Smoked ETOH Use: denies use Illicit Drug Use: denies illicit drug use Functional Ability ADLs Independent: dressing, eating, toileting, bathing. Ambulation: independent Employment History Employment: Retired Exam & Diagnostic Data Vital Signs and I&O Vital Signs Date Time Temp Pulse Resp B/P B/P Pulse O2 O2 Flow FiO2 Mean Ox Delivery Rate 02/06 0918 81 80/40 02/06 0800 96.8 84 22 80/50 99 Room Air 02/06 0337 68/48 02/06 0252 82 18 70/38 96 Room Air 02/06 0215 81 18 64/32 Room Air 02/06 0148 99 Room Air 02/06 0130 74/64 02/06 0112 99.7 90 18 93 Room Air Intake & Output 02/06 1600 02/06 0400 02/05 1600 02/05 0400 02/04 1600 02/04 0400 Intake Total 8000 Output Total 200 Balance 7800 Intake, IV 8000 Output, Urine 200 Patient 240 lb 350 lb Weight Weight Bed scale Estimated Measurement Method Physical Exam General Appearance: well developed/nourished, no apparent distress, alert Head: atraumatic, normal appearance Eyes: Bilateral: normal appearance. Ears, Nose, Throat: normal ENT inspection Neck: normal inspection Respiratory: normal breath sounds, no respiratory distress, quiet respiration, lungs clear Cardiovascular: regular rate/rhythm, friction rub (none) Gastrointestinal: soft, non-tender, no organomegaly Back: normal inspection Extremities: no edema Neurologic/Psych: no motor/sensory deficits, awake, alert, oriented x 3, freezer unloader II- XII nml as tested Skin: intact, normal color, warm/dry Lymphatic: no anterior cervical [place], no axil Results Pertinent Lab Results: Laboratory Tests 02/06 02/06 02/06 1213 0900 0625 Chemistry Lactic Acid (0.7 - 2.1 mmol/L) 0.7 Troponin I Pending Urines Urinalysis LIGHT H Urine Color (YEL,AMB,STR) YEL Urine Clarity (CLEAR) CLEAR Urine pH (5.0 - 8.0) 6.0 Ur Specific [place] (1.001 - 1.035) 1.015 Urine Protein (NEG,<30 MG/DL) TRACE H Urine Ketones (NEG) NEG Urine Nitrite (NEG) NEG Urine Bilirubin (NEG) NEG Urine Urobilinogen (0.1 - 1.0 EU/dl) 0.2 Ur Leukocyte Esterase (NEG) TRACE H Ur Microscopic SEDIMENT EXAMINED Urine RBC (0 - 5 /HPF) RARE Urine WBC (0 - 2 /HPF) RARE Ur Epithelial Cells (NONE,FEW) FEW Urine Bacteria (NEG/NONE) RARE H Hyaline Casts (0/LPF) RARE H Urine Hemoglobin (NEG) TRACE-INTACT Urine Glucose (N MG/DL) NEG 02/06 02/06 0625 0144 Chemistry Sodium (137 - 145 mmol/L) 135 L 128 L Potassium (3.5 - 5.1 mmol/L) 3.7 4.6 Chloride (98 - 107 mmol/L) 112 H 95 L Carbon Dioxide (22 - 30 mmol/L) 9 *L 15 L Anion Gap (5 - 16) 14 19 H BUN (7 - 17 mg/dL) 56 H 73 H Creatinine (0.5 - 1.0 mg/dL) 4.0 H 5.9 *H Estimated GFR (>60 ml/min) 11 L 7 L BUN/Creatinine Ratio (7 - 25 %) 14.0 12.4 Glucose (65 - 99 mg/dL) 81 Calcium (8.4 - 10.2 mg/dL) 9.2 Magnesium (1.6 - 2.3 mg/dL) 1.4 L Total Bilirubin (0.2 - 1.3 mg/dL) 0.3 AST (14 - 36 U/L) 19 ALT (9 - 52 U/L) 28 Alkaline Phosphatase (<127 U/L) 100 Troponin I (< 0.11 ng/ml) < 0.01 < 0.01 Total Protein (6.3 - 8.2 g/dL) 6.2 L Albumin (3.5 - 5.0 g/dL) 3.5 Globulin (1.9 - 4.2 gm/dL) 2.7 Albumin/Globulin Ratio (1.1 - 2.2 %) 1.3 Lipase (23 - 300 U/L) 509 H Hematology CBC w Diff NO MAN DIFF REQ MAN DIFF ORDERED WBC (4.8 - 10.8 /CUMM) 13.8 H 17.5 H RBC (4.20 - 5.40 /CUMM) 3.64 L 4.16 L Hgb (12.0 - 16.0 G/DL) 10.8 L 12.3 Hct (37 - 47 %) 32.4 L 36.8 L MCV (81.0 - 99.0 FL) 89.1 88.6 MCH (27.0 - 31.0 PG) 29.6 29.7 MCHC (33.0 - 37.0 G/DL) 33.2 33.5 RDW (11.5 - 14.5 %) 15.6 H 15.1 H Plt Count (130 - 400 /CUMM) 224 276 MPV (7.4 - 10.4 FL) 8.6 8.9 Gran % (42.2 - 75.2 %) 89.1 H 85.9 H Lymphocytes % (20.5 - 51.1 %) 6.2 L 5.5 L Monocytes % (1.7 - 9.3 %) 3.8 6.8 Eosinophils % (0 - 5 %) 0.6 1.5 Basophils % (0.0 - 2.0 %) 0.3 0.3 Absolute Granulocytes (1.4 - 6.5 /CUMM) 12.3 H 15.0 H Segmented Neutrophils (42.2 - 75.2 %) 82 H Band Neutrophils (0.0 - 5.0 %) 2 Absolute Lymphocytes (1.2 - 3.4 /CUMM) 0.9 L 1.0 L Lymphocytes (20.5 - 51.1 %) 10 L Monocytes (1.7 - 9.3 %) 3 Absolute Monocytes (0.10 - 0.60 /CUMM) 0.5 1.2 H Eosinophils (0 - 5.0 %) 3 Absolute Eosinophils (0.0 - 0.7 /CUMM) 0.1 0.3 Absolute Basophils (0.0 - 0.2 /CUMM) 0 0.1 Platelet Estimate (ADEQUATE) ADEQUATE Normocytic RBCs VERIFIED Normochromic RBCs VERIFIED Imaging/Other Studies: CXR: The cardiac and mediastinal contours are normal. There is a right jugular line with tip projecting over the SVC. The lungs are clear. There is no pleural effusion or pneumothorax. CT: Both kidneys are of normal size and attenuation without hydronephrosis or nephrolithiasis. Colonic diverticulosis and diverticulitis without drainable fluid collections. Assessment/Plan Assessment/Recommendations Assessment: 1. JASMEET: likely prerenal due to volume depletion in face of RAAS inhibition. ATN less likely given improving renal function & u/o. No renal replacement indication. 2. Met Acid: due to JASMEET, diarrhea, & IV NS; needs iotonic Na bicarb. 3. Hyponatremia: due to free water intake in face of JASMEET --> dilution. Can not make dx SIADH in current setting. Improving w istonic fluids. Recommendations: 1. ABG 2. Isotonic Na bicarb 500 ml bolus then 75 -100 ml/hr w target bicarb ~ 20 3. If taking po can add Na bicarb tabs 1300 mg tid
[2018-02-06 16:00] VITALS: BP 104/50
[2018-02-07] VITALS: BP 112/52
[2018-02-07 06:33] LABS: ABSOLUTE BASOPHIL COUNT 0 /CUMM (0.0-0.2); ABSOLUTE EOSINOPHIL COUNT 0.2 /CUMM (0.0-0.7); ABSOLUTE GRANULOCYTE CT 7.9 /CUMM (1.4-6.5); ABSOLUTE LYMPH COUNT 1.1 /CUMM (1.2-3.4); ABSOLUTE MONOCYTE COUNT 0.8 /CUMM (0.10-0.60); BASOPHIL % 0.2 % (0.0-2.0); EOSINOPHIL % 1.8 % (0-5); GRANULOCYTE % 78.9 % (42.2-75.2); HEMATOCRIT 29.7 % (37-47); MEAN CORPUSCULAR HGB 29.5 PG (27.0-31.0); MEAN CORPUSCULAR HGB CONC 33.2 G/DL (33.0-37.0); MEAN PLATELET VOLUME 8.4 FL (7.4-10.4); PLATELET COUNT 208 /CUMM (130-400); RBC DISTRIBUTION WIDTH 15.5 % (11.5-14.5); RED BLOOD CELL CT 3.34 /CUMM (4.20-5.40)
--- NOTE | 2018-02-07 07:11 | PN- Resident CRCU ---
Subjective HPI/CRCU Issues: Suspected C.diff diarrhea 24 Hour Events: No acute events overnight. Patient was weaned off the norepinephrine drip yesterday and her blood pressure has been stable. Continues to have loose bowel movements. States she went 6 times yesterday. A rectal tube was placed. Objective Vital Signs & I&O Last 8 Hrs of Vitals and I&O: . Exam General Appearance: well developed/nourished, alert, awake, mild distress, obese Head: atraumatic, normal appearance Respiratory: normal breath sounds, chest non-tender, lungs clear Cardiovascular: regular rate/rhythm Gastrointestinal: soft, non-tender Extremities: mild edema of lower extremities Cranial Nerves: normal hearing, normal speech Skin: intact, normal color, warm/dry Skin Temp/Moisture Exam: Warm/Dry Current Medications: Current Medications Sig/Francoise Start time Last Medication Dose Route Stop Time Status Admin Aspirin 81 MG DAILY 02/06 1430 AC 02/07 PO 0827 Atorvastatin Calcium 40 MG 1700 02/06 1700 AC 02/06 PO 1600 Ceftriaxone Sodium 1,000 MG DAILY 02/07 0900 AC IV Ceftriaxone Sodium 1,000 MG DAILY 02/06 0530 DC 02/06 IV 0918 Famotidine 20 MG DAILY 02/06 1446 AC 02/07 PO 0827 Heparin Sodium 5,000 UNIT Q8 02/06 1400 AC 02/07 (Porcine) SC 0509 Insulin Aspart 0 TIDAC 02/06 1200 AC SC Magnesium Sulfate 1 GM ONCE ONE 02/07 0715 AC Dextrose/Water 100 ML IV 02/07 1114 Magnesium Sulfate 1 GM Q2H 02/06 1345 DC 02/06 Dextrose/Water 100 ML IV 02/06 1744 1519 Metronidazole 500 MG IQ8 02/06 0800 AC 02/07 N/A 1 UNIT IV 0826 Norepinephrine 4 MG Q24H 02/06 0600 AC 02/06 Sodium Chloride 250 ML IV 0918 Potassium Chloride 40 MEQ ONCE ONE 02/06 1500 DC 02/06 PO 02/06 1501 1600 Sodium Bicarbonate 1,300 MG TID 02/06 1400 AC 02/07 PO 0828 Sodium Bicarbonate 150 MEQ ONCE ONE 02/06 1215 DC 02/06 Dextrose/Water 1,000 ML IV 02/06 1414 1244 Sodium Bicarbonate 150 MEQ Q13H 02/06 1215 DC 02/06 Dextrose/Water 1,000 ML IV 1404 Sodium Chloride 1,000 ML Q13H 02/06 1915 DC 02/06 IV 02/07 0814 2105 Vancomycin HCl 500 MG Q6 02/06 0600 AC 02/07 PO 0508 Impression/Plan Impression/Problem List Impression: 72-year-old female with past medical history of hypertension, hyperlipidemia, diverticulitis, recurrent UTIs was brought in by family with chief complaint of severe diarrhea since past 3-4 days. Assessment: 1. Sepsis - Hypotension requiring pressors, leukocytosis with likely C.diff infection 2. Suspected C.diff 3. Non-anion gap metabolic acidosis likely due to diarrhea 4. JASMEET - likely due to dehydration and lisinopril 5. Hyponatremia - resolved 6. History of Hypertension and Hyperlipidemia Plan: * Continue monitoring in the ICU for now. * No need for further IVF. Patient received 8L of NS on admission. Her urine output is good. JASMEET has showed significant improvement since admission. She likely had prerenal azotemia. * Await C.diff toxin was negative. PCR is pending. * Follow up blood cultures. * Continue oral Vancomycin 500mg q6 and IV metronidazole 500mg q8. * Continue NaHCO3 tabs 1300mg TID. She still has a bicarb deficit. * Hold lisinopril * Trend renal function * GI consult for diverticulitis which was seen on her noncontrast CT. * Diet: Regular * DVT Prophylaxis: SC Heparin * Code Status: Full Code Problem List: 1. Acute renal failure Pain Ratin Tomorrow's Labs & Rationales: CBC, ICU bundle Plan DVT/Prophylaxis: mechanical, pharmacological
[2018-02-07 08:00] VITALS: BP 120/60
--- NOTE | 2018-02-07 10:04 | PN- CRCU ---
Subjective HPI/Critical Care Issues: No acute events overnight. Patient was weaned off the norepinephrine drip yesterday and her blood pressure has been stable. Continues to have loose bowel movements. States she went 6 times yesterday. A rectal tube was placed. Objective Current Medications: Current Medications Sig/Francoise Start time Last Medication Dose Route Stop Time Status Admin Aspirin 81 MG DAILY 02/06 1430 AC 02/07 PO 0827 Atorvastatin Calcium 40 MG 1700 02/06 1700 AC 02/06 PO 1600 Ceftriaxone Sodium 1,000 MG DAILY 02/07 0900 AC 02/07 IV 0845 Ceftriaxone Sodium 1,000 MG DAILY 02/06 0530 DC 02/06 IV 0918 Famotidine 20 MG DAILY 02/06 1446 AC 02/07 PO 0827 Heparin Sodium 5,000 UNIT Q8 02/06 1400 AC 02/07 (Porcine) SC 0509 Insulin Aspart 0 TIDAC 02/06 1200 AC SC Magnesium Sulfate 1 GM ONCE ONE 02/07 0715 AC Dextrose/Water 100 ML IV 02/07 1114 Magnesium Sulfate 1 GM Q2H 02/06 1345 DC 02/06 Dextrose/Water 100 ML IV 02/06 1744 1519 Metronidazole 500 MG IQ8 02/06 0800 AC 02/07 N/A 1 UNIT IV 0826 Norepinephrine 4 MG Q24H 02/06 0600 AC 02/06 Sodium Chloride 250 ML IV 0918 Ondansetron HCl 4 MG ONCE ONE 02/07 0845 DC 02/07 IV 02/07 0846 0845 Potassium Chloride 40 MEQ ONCE ONE 02/06 1500 DC 02/06 PO 02/06 1501 1600 Sodium Bicarbonate 1,300 MG TID 02/06 1400 AC 02/07 PO 0828 Sodium Bicarbonate 150 MEQ ONCE ONE 02/06 1215 DC 02/06 Dextrose/Water 1,000 ML IV 02/06 1414 1244 Sodium Bicarbonate 150 MEQ Q13H 02/06 1215 DC 02/06 Dextrose/Water 1,000 ML IV 1404 Sodium Chloride 1,000 ML Q13H 02/06 1915 DC 02/06 IV 02/07 0814 2105 Vancomycin HCl 500 MG Q6 02/06 0600 AC 02/07 PO 0508 Vital Signs & I&O Last 24 Hrs of Vitals and I&O: Vital Signs Date Time Temp Pulse Resp B/P B/P Pulse O2 O2 Flow FiO2 Mean Ox Delivery Rate 02/07 0510 84 100/49 02/07 0000 97.0 81 20 112/52 96 Room Air 02/06 1600 98.0 76 20 104/50 97 Room Air Intake & Output 02/07 1600 02/07 0800 02/07 0000 Intake Total 1000 1215 Output Total 500 1450 Balance 500 -235 Intake, IV 800 815 Intake, Oral 200 400 Number 1 Bowel Movements Output, Urine 500 1450 Laboratory Tests 02/07 02/07 02/06 02/06 0620 0000 1745 1213 Chemistry Sodium (137 - 145 mmol/L) 137 135 L Potassium (3.5 - 5.1 mmol/L) 4.4 3.8 Chloride (98 - 107 mmol/L) 110 H 108 H Carbon Dioxide (22 - 30 mmol/L) 19 L 17 L Anion Gap (5 - 16) 9 10 BUN (7 - 17 mg/dL) 33 H 46 H Creatinine (0.5 - 1.0 mg/dL) 1.4 H 2.5 H Estimated GFR (>60 ml/min) 37 L 19 L Glucose (65 - 99 mg/dL) 115 H 112 H Calcium (8.4 - 10.2 mg/dL) 8.6 8.3 L Phosphorus (2.5 - 4.5 mg/dL) 2.8 4.3 Magnesium (1.6 - 2.3 mg/dL) 1.6 1.8 1.3 L Total Bilirubin (0.2 - 1.3 mg/dL) 0.2 0.1 L AST (14 - 36 U/L) 21 21 ALT (9 - 52 U/L) 32 30 Troponin I (< 0.11 ng/ml) 0.31 *H 0.32 *H 0.19 *H Albumin (3.5 - 5.0 g/dL) 2.4 L 2.4 L Hematology CBC w Diff Pending WBC (4.8 - 10.8 /CUMM) 10.0 RBC (4.20 - 5.40 /CUMM) 3.34 L Hgb (12.0 - 16.0 G/DL) 9.9 L Hct (37 - 47 %) 29.7 L MCV (81.0 - 99.0 FL) 89.0 MCH (27.0 - 31.0 PG) 29.5 MCHC (33.0 - 37.0 G/DL) 33.2 RDW (11.5 - 14.5 %) 15.5 H Plt Count (130 - 400 /CUMM) 208 MPV (7.4 - 10.4 FL) 8.4 Gran % (42.2 - 75.2 %) 78.9 H Lymphocytes % (20.5 - 51.1 %) 11.2 L Monocytes % (1.7 - 9.3 %) 7.9 Eosinophils % (0 - 5 %) 1.8 Basophils % (0.0 - 2.0 %) 0.2 Absolute Granulocytes (1.4 - 6.5 /CUMM) 7.9 H Absolute Lymphocytes (1.2 - 3.4 /CUMM) 1.1 L Absolute Monocytes (0.10 - 0.60 /CUMM) 0.8 H Absolute Eosinophils (0.0 - 0.7 /CUMM) 0.2 Absolute Basophils (0.0 - 0.2 /CUMM) 0 02/06 02/06 0900 0625 Chemistry Lactic Acid (0.7 - 2.1 mmol/L) 0.7 Urines Urinalysis LIGHT H Urine Color (YEL,AMB,STR) YEL Urine Clarity (CLEAR) CLEAR Urine pH (5.0 - 8.0) 6.0 Ur Specific [place] (1.001 - 1.035) 1.015 Urine Protein (NEG,<30 MG/DL) TRACE H Urine Ketones (NEG) NEG Urine Nitrite (NEG) NEG Urine Bilirubin (NEG) NEG Urine Urobilinogen (0.1 - 1.0 EU/dl) 0.2 Ur Leukocyte Esterase (NEG) TRACE H Ur Microscopic SEDIMENT EXAMINED Urine RBC (0 - 5 /HPF) RARE Urine WBC (0 - 2 /HPF) RARE Ur Epithelial Cells (NONE,FEW) FEW Urine Bacteria (NEG/NONE) RARE H Hyaline Casts (0/LPF) RARE H Urine Hemoglobin (NEG) TRACE-INTACT Urine Glucose (N MG/DL) NEG 02/06 02/06 02/06 0625 0544 0352 Chemistry Sodium (137 - 145 mmol/L) 135 L Potassium (3.5 - 5.1 mmol/L) 3.7 Chloride (98 - 107 mmol/L) 112 H Carbon Dioxide (22 - 30 mmol/L) 9 *L Anion Gap (5 - 16) 14 BUN (7 - 17 mg/dL) 56 H Creatinine (0.5 - 1.0 mg/dL) 4.0 H Estimated GFR (>60 ml/min) 11 L BUN/Creatinine Ratio (7 - 25 %) 14.0 Lactic Acid Cancelled Troponin I (< 0.11 ng/ml) < 0.01 Hematology CBC w Diff NO MAN DIFF REQ WBC (4.8 - 10.8 /CUMM) 13.8 H RBC (4.20 - 5.40 /CUMM) 3.64 L Hgb (12.0 - 16.0 G/DL) 10.8 L Hct (37 - 47 %) 32.4 L MCV (81.0 - 99.0 FL) 89.1 MCH (27.0 - 31.0 PG) 29.6 MCHC (33.0 - 37.0 G/DL) 33.2 RDW (11.5 - 14.5 %) 15.6 H Plt Count (130 - 400 /CUMM) 224 MPV (7.4 - 10.4 FL) 8.6 Gran % (42.2 - 75.2 %) 89.1 H Lymphocytes % (20.5 - 51.1 %) 6.2 L Monocytes % (1.7 - 9.3 %) 3.8 Eosinophils % (0 - 5 %) 0.6 Basophils % (0.0 - 2.0 %) 0.3 Absolute Granulocytes (1.4 - 6.5 /CUMM) 12.3 H Absolute Lymphocytes (1.2 - 3.4 /CUMM) 0.9 L Absolute Monocytes (0.10 - 0.60 /CUMM) 0.5 Absolute Eosinophils (0.0 - 0.7 /CUMM) 0.1 Absolute Basophils (0.0 - 0.2 /CUMM) 0 Serology C. difficile Tox B Gene Pending 02/06 0144 Chemistry Sodium (137 - 145 mmol/L) 128 L Potassium (3.5 - 5.1 mmol/L) 4.6 Chloride (98 - 107 mmol/L) 95 L Carbon Dioxide (22 - 30 mmol/L) 15 L Anion Gap (5 - 16) 19 H BUN (7 - 17 mg/dL) 73 H Creatinine (0.5 - 1.0 mg/dL) 5.9 *H Estimated GFR (>60 ml/min) 7 L BUN/Creatinine Ratio (7 - 25 %) 12.4 Glucose (65 - 99 mg/dL) 81 Calcium (8.4 - 10.2 mg/dL) 9.2 Magnesium (1.6 - 2.3 mg/dL) 1.4 L Total Bilirubin (0.2 - 1.3 mg/dL) 0.3 AST (14 - 36 U/L) 19 ALT (9 - 52 U/L) 28 Alkaline Phosphatase (<127 U/L) 100 Troponin I (< 0.11 ng/ml) < 0.01 Total Protein (6.3 - 8.2 g/dL) 6.2 L Albumin (3.5 - 5.0 g/dL) 3.5 Globulin (1.9 - 4.2 gm/dL) 2.7 Albumin/Globulin Ratio (1.1 - 2.2 %) 1.3 Lipase (23 - 300 U/L) 509 H Hematology CBC w Diff MAN DIFF ORDERED WBC (4.8 - 10.8 /CUMM) 17.5 H RBC (4.20 - 5.40 /CUMM) 4.16 L Hgb (12.0 - 16.0 G/DL) 12.3 Hct (37 - 47 %) 36.8 L MCV (81.0 - 99.0 FL) 88.6 MCH (27.0 - 31.0 PG) 29.7 MCHC (33.0 - 37.0 G/DL) 33.5 RDW (11.5 - 14.5 %) 15.1 H Plt Count (130 - 400 /CUMM) 276 MPV (7.4 - 10.4 FL) 8.9 Gran % (42.2 - 75.2 %) 85.9 H Lymphocytes % (20.5 - 51.1 %) 5.5 L Monocytes % (1.7 - 9.3 %) 6.8 Eosinophils % (0 - 5 %) 1.5 Basophils % (0.0 - 2.0 %) 0.3 Absolute Granulocytes (1.4 - 6.5 /CUMM) 15.0 H Segmented Neutrophils (42.2 - 75.2 %) 82 H Band Neutrophils (0.0 - 5.0 %) 2 Absolute Lymphocytes (1.2 - 3.4 /CUMM) 1.0 L Lymphocytes (20.5 - 51.1 %) 10 L Monocytes (1.7 - 9.3 %) 3 Absolute Monocytes (0.10 - 0.60 /CUMM) 1.2 H Eosinophils (0 - 5.0 %) 3 Absolute Eosinophils (0.0 - 0.7 /CUMM) 0.3 Absolute Basophils (0.0 - 0.2 /CUMM) 0.1 Platelet Estimate (ADEQUATE) ADEQUATE Normocytic RBCs VERIFIED Normochromic RBCs VERIFIED Microbiology Date/Time Procedure - Status Source Growth 02/06 1030 Cryptosporidium Antigen - RECD STOOL 02/06 1030 Giardia Antigen (CANDACE) - RECD STOOL 02/06 0910 Blood Culture - RECD BLOOD 02/06 0844 Blood Culture - CAN BLOOD Cancelled: SPECIMEN NOT RECEIVED, UNABLE TO DE DRAWN PER [facility] 02/06 0700 Stool Culture - RES STOOL 02/06 0700 Clostridium difficile Toxin A & B - COMP STOOL 02/06 0608 Blood Culture - CAN BLOOD Cancelled: SPECIMEN NOT RECEIVED, UNABLE TO BE DRAWN PER [facility] 02/06 0608 Blood Culture - CAN BLOOD Cancelled: SPECIMEN NOT RECEIVED, UNABLE TO BE DRAWN PER [facility]ITA.[facility] 02/06 0500 Surveillance Culture - RECD UPPER RESP 02/06 0500 Surveillance Culture - RECD GI 02/06 0248 Urine Culture - RECD URINE ROUT SIGNIFICANT DATA Significant improvement in creatinine noted 1.4 urine output is adequate anion gap is 9 on bicarbonate drip Troponin is slightly elevated at 0.31 White count down to 10 hemoglobin 9.9 platelets 208 C. difficile pending Chest x-ray unremarkable Impression/Plan Impression/Plan Impression/Plan: General Appearance Alert, Oriented X3, Cooperative, Moderate Distress Skin No Rashes, No Breakdown Skin Temp/Moisture Exam: Cool/Dry Sepsis Skin Exam (color): Normal for Ethnicity, Pale HEENT Atraumatic, PERRLA, EOMI, tle in place Neck Supple, No JVD, No LAD Cardiovascular Regular Rate, Normal S1, Normal S2 Lungs Clear to Auscultation, Normal Air Movement Abdomen Normal Bowel Sounds, Soft, No Tenderness Neurological Normal Speech Extremities No Clubbing, No Cyanosis (Weak pulses) This patient is a 72-year-old white female with a significant past medical history for hypertension, lipidemia, diverticulosis, gout, depression/anxiety and osteo-arthritis. She presented to the emergency department with a four-day history of nausea vomiting diarrhea. She was started on Bactrim 5 days prior to admission for urinary tract infection. She then developed frequent loose watery stools. Upon evaluation in the emergency department she was found to have an elevated white blood cell count to 17.5 and significant hypotension. Her BUN is 73 and creatinine is 5.9. Lactic acid is pending. CT scan of her abdomen demonstrates colonic diverticulosis and diverticulitis without drainable fluid collections. The patient was given a dose of ceftriaxone and started on fulminant C. difficile protocol with IV metronidazole and oral vancomycin. Cultures pending. Currently in the unit with a central line placed this am. ISSUES * Ongoing diarrhea highly suggestive of C. difficile, with resolving sepsis, hypotension and multiple organ dysfunction * Acute renal failure due to dehydration/ diarrhea/ compounded by RASS issues ( pt was on lisinopril) * History of diverticulosis with no significant diverticulitis * History of anxiety and depression which appears stable * Resolving anion gap acidosis with no significant lactic acidosis probably related to profound diarrhea * Diabetes * Anemia of unknown etiology * History of hypertension, hyperlipidemia, recurrent UTI in the past * Morbid obesity with severe DJD pending knee replacement PLAN/RECOMMENDATION Continue IV fluids, can dc bicarb drip and change to d5 0.45 saline Await cultures Hold ceftriaxone Fingerstick glucose and cover with sliding scale Hold PEREZ inhibitor and other antihypertensives We will follow closely Patient critically ill total time spent 38 minutes
[2018-02-07 12:00] VITALS: BP 98/60
[2018-02-07 16:00] VITALS: BP 108/60
--- NOTE | 2018-02-07 17:43 | ECHOCARDIOGRAM REPORT ---
VANNESA FRAUSTO Age: 72 : 1945 Gender: F Exam Date: 02/07/2018 10:39 Exam Location: [facility] Ht (in): 63 Wt (lb): 239 BSA: 2.26 BP: 106 / 41 Ordering Physician: Yung Pedraza MD Referring Physician: Yung Pedraza MD Technologist: Jono Burr [facility] Room Number: 105-1 Indications: MYOCARDIAL ISCHEMIA Rhythm: Sinus Technical Quality: Good FINDINGS Left Ventricle Normal left ventricular size, wall thickness and systolic function with no obvious regional wall motion abnormalities. Normal left ventricular diastolic filling pattern for age. The ejection fraction is visually estimated at >65 %. Right Ventricle The right ventricle is normal in size and function. Right Atrium The right atrium is normal in size. Left Atrium The left atrium is normal in size. The interatrial septum is intact. Mitral Valve The mitral valve is normal in structure and function. There is trace mitral regurgitation. Aortic Valve Focal thickening of the aortic valve cusps. No aortic stenosis. No aortic regurgitation. Tricuspid Valve The tricuspid valve is normal in structure and function. There is trace tricuspid regurgitation. Pulmonary artery systolic pressure is normal. Pulmonic Valve Structurally normal pulmonic valve. There is trace pulmonic regurgitation. Pericardium Normal pericardium without effusion. No pleural effusion. Great Vessels Normal aortic root dimension. The aortic arch and great vessels are well seen and are normal. CONCLUSIONS Normal left ventricular size, wall thickness and systolic function with no obvious regional wall motion abnormalities. The left atrium is normal in size. The mitral valve is normal in structure and function. There is trace mitral regurgitation. Focal thickening of the aortic valve cusps. No aortic stenosis. Pulmonary artery systolic pressure is normal. Physiologic valvular regurgitation. Jayson Cuenca M.D. (Electronically Signed) Final Date: 07 February 2018 17:43 MEASUREMENTS (Male / Female) Normal Values 2D ECHO LV Diastolic Diameter PLAX 4.9 cm 4.2 - 5.9 / 3.9 - 5.3 cm LV Systolic Diameter PLAX 3.1 cm 2.1 - 4.0 cm LV Fractional Shortening PLAX 36.7 % 25 - 46 % LV Ejection Fraction 2D Teich 66.4 % IVS Diastolic Thickness 0.7 cm LVPW Diastolic Thickness 1.0 cm LV Relative Wall Thickness 0.3 RV Internal Dim ED PLAX 3.6 cm 1.9 - 3.8 cm LVOT Diameter 1.7 cm Aortic Root Diameter 2.5 cm LA Systolic Diameter LX 3.0 cm 3.0 - 4.0 / 2.7 - 3.8 cm Ascending Aorta Diameter 2.5 cm DOPPLER AV Peak Velocity 155.0 cm/s AV Peak Gradient 9.6 mmHg AV Mean Velocity 112.0 cm/s AV Mean Gradient 6.0 mmHg AV Velocity Time Integral 33.4 cm LVOT Peak Velocity 103.0 cm/s LVOT Peak Gradient 4.2 mmHg LVOT Mean Velocity 71.7 cm/s LVOT Mean Gradient 2.0 mmHg LVOT Velocity Time Integral 20.2 cm LVOT Stroke Volume 45.9 cm AV Area Cont Eq vti 1.4 cm AV Area Cont Eq pk 1.5 cm MV Peak Velocity 99.1 cm/s MV Peak Gradient 3.9 mmHg MV Mean Velocity 63.5 cm/s MV Mean Gradient 2.0 mmHg Mitral E Point Velocity 83.4 cm/s Mitral A Point Velocity 99.7 cm/s Mitral E to A Ratio 0.8 MV PHT Velocity 103.0 cm/s MV Deceleration [place] 301.0 cm/s MV Pressure Half Time 102.7 ms MV Area PHT 2.1 cm MV Deceleration Time 275.0 ms TR Peak Velocity 252.0 cm/s TR Peak Gradient 25.4 mmHg Right Atrial Pressure 10.0 mmHg Pulmonary Artery Systolic Pressure 35.4 mmHg Right Ventricular Systolic Pressure 35.4 mmHg PV Peak Velocity 124.0 cm/s PV Peak Gradient 6.2 mmHg PV Mean Velocity 88.0 cm/s PV Mean Gradient 4.0 mmHg PV Velocity Time Integral 26.3 cm LV E' Lateral Velocity 16.9 cm/s Mitral E to LV E' Lateral Ratio 4.9 LV E' Septal Velocity 6.6 cm/s Mitral E to LV E' Septal Ratio 12.6
--- NOTE | 2018-02-07 18:20 | Cons- Gastroenterology ---
General Information and HPI Consulting Request Date of Consult: 02/07/18 Requested By: Darvin Wadsworth MD Reason for Consult: Diarrhea, diverticular disease History of Present Illness: The patient was hospitalized for biliary sepsis one year ago, treated with cholecystostomy tube placement, and subsequently cholecystectomy (performed elsewhere). She has known diverticulosis. There is no history of colitis, GI bleed, significant/recurrent dyspepsia. She does have frequent diarrhea. She is now admitted with severe diarrhea and hypotension following course of Bactrim for a skin lesion. C. difficile toxin has been negative, but she has been empirically treated with IV ceftriaxone, IV metronidazole, and oral vancomycin, with improvement in her diarrhea and blood pressure. Of note there was never any abdominal pain, or fever. Allergies/Medications Allergies: Coded Allergies: Penicillins (HIVES 03/08/17) Home Med List: Allopurinol 300 MG TABLET 1 TAB PO DAILY GOUT (Reported) Atorvastatin Calcium 20 MG TABLET 1 TAB PO DAILY CHOLESTEROL (Reported) Biotin (Keith Biotin) 10,000 MCG CAPSULE 1 CAP PO DAILY SUPPLEMENT (Reported) Cholecalciferol (Vitamin D3) (Vitamin D3) 1,000 UNIT CAPSULE 1 CAP PO DAILY SUPPLEMENT (Reported) Ciprofloxacin HCl (Cipro) 500 MG TABLET 1 TAB PO BID gall bladder infection Citalopram Hydrobromide (Citalopram HBr) 10 MG TABLET 1 TAB PO DAILY MENTAL HEALTH (Reported) Enalapril Maleate 10 MG TABLET 1 TAB PO DAILY BP (Reported) Ibuprofen (Advil) 200 MG TABLET 2 TAB PO DAILY PAIN (Reported) Lorazepam 0.5 MG TABLET 0.5 TAB PO QPM SLEEP (Reported) Metronidazole 500 MG TABLET 1 TAB PO TID GALL BLADDER INFECTION Pantoprazole Sodium 40 MG TABLET.DR 1 TAB PO DAILY GI (Reported) Propranolol HCl 40 MG TABLET 1 TAB PO DAILY BP (Reported) Current Medications: Current Medications Sig/Francoise Start time Last Medication Dose Route Stop Time Status Admin Aspirin 81 MG DAILY 02/06 1430 AC 02/07 PO 0827 Atorvastatin Calcium 40 MG 1700 02/06 1700 AC 02/07 PO 1725 Ceftriaxone Sodium 1,000 MG DAILY 02/07 0900 AC 02/07 IV 0845 Dextrose/Sodium 1,000 ML Q13H 02/07 1045 AC 02/07 Chloride IV 1118 Famotidine 20 MG DAILY 02/06 1446 AC 02/07 PO 0827 Heparin Sodium 5,000 UNIT Q8 02/06 1400 AC 02/07 (Porcine) SC 1403 Insulin Aspart 0 TIDAC 02/06 1200 AC SC Magnesium Sulfate 1 GM ONCE ONE 02/07 0715 DC 02/07 Dextrose/Water 100 ML IV 02/07 1114 1019 Metronidazole 500 MG IQ8 02/06 0800 AC 02/07 N/A 1 UNIT IV 1538 Norepinephrine 4 MG Q24H 02/06 0600 AC 02/06 Sodium Chloride 250 ML IV 0918 Nystatin 5 ML 4 TIMES/DAY 02/07 1300 AC 02/07 PO 1725 Ondansetron HCl 4 MG ONCE ONE 02/07 0845 DC 02/07 IV 02/07 0846 0845 Sodium Bicarbonate 1,300 MG TID 02/06 1400 AC 02/07 PO 1402 Sodium Bicarbonate 150 MEQ Q13H 02/06 1215 DC 02/06 Dextrose/Water 1,000 ML IV 1404 Sodium Chloride 1,000 ML Q13H 02/06 1915 DC 02/06 IV 02/07 0814 2105 Vancomycin HCl 500 MG Q6 02/06 0600 AC 02/07 PO 1725 Past History Travel History Traveled to [place] past 21 day No Medical History Blood Transfusion Hx: No Neurological: NONE EENT: NONE Cardiovascular: hypertension, hyperlipidemia Respiratory: NONE Gastrointestinal: DIVERTICULITIS Hepatic: NONE Renal: FREQ, UTIS Musculoskeletal: OBESITY Psychiatric: anxiety, depression Endocrine: NONE Blood Disorders: NONE Cancer(s): NONE GLASS CRUSHER/Reproductive: NONE Surgical History Surgical History: cholecystectomy, cataract removal Family History Relations & Conditions If Any: DAUGHTER Relation not specified for: Cholecystitis FH: diabetes mellitus FH: hypertension Psychosocial History Where Do You Live? Home Services at Home: None Smoking Status: Never Smoked ETOH Use: denies use Illicit Drug Use: denies illicit drug use Functional Ability ADLs Independent: dressing, eating, toileting, bathing. Ambulation: independent Employment History Employment: Retired Exam & Diagnostic Data Vital Signs and I&O Vital Signs Date Time Temp Pulse Resp B/P B/P Pulse O2 O2 Flow FiO2 Mean Ox Delivery Rate 02/07 0800 97.2 82 19 120/60 100 Room Air 02/07 0800 100 Room Air 02/07 0510 84 100/49 02/07 0000 97.0 81 20 112/52 96 Room Air Intake & Output 02/07 1600 02/07 0400 02/06 0400 02/05 0400 Intake Total 1000 1215 9670 Output Total 500 1450 1850 Balance 500 -235 7820 Intake, IV 058 302 4489 Intake, Oral 200 400 740 Number 1 5 Bowel Movements Output, Urine 500 1450 1850 Patient 240 lb 350 lb Weight Weight Bed scale Estimated Measurement Method Physical Exam: Unrevealing. Results Pertinent Lab Results: Laboratory Tests 02/07 02/07 02/06 0620 0000 1745 Chemistry Sodium (137 - 145 mmol/L) 137 135 L Potassium (3.5 - 5.1 mmol/L) 4.4 3.8 Chloride (98 - 107 mmol/L) 110 H 108 H Carbon Dioxide (22 - 30 mmol/L) 19 L 17 L Anion Gap (5 - 16) 9 10 BUN (7 - 17 mg/dL) 33 H 46 H Creatinine (0.5 - 1.0 mg/dL) 1.4 H 2.5 H Estimated GFR (>60 ml/min) 37 L 19 L Glucose (65 - 99 mg/dL) 115 H 112 H Calcium (8.4 - 10.2 mg/dL) 8.6 8.3 L Phosphorus (2.5 - 4.5 mg/dL) 2.8 4.3 Magnesium (1.6 - 2.3 mg/dL) 1.6 1.8 Total Bilirubin (0.2 - 1.3 mg/dL) 0.2 0.1 L AST (14 - 36 U/L) 21 21 ALT (9 - 52 U/L) 32 30 Troponin I (< 0.11 ng/ml) 0.31 *H 0.32 *H Albumin (3.5 - 5.0 g/dL) 2.4 L 2.4 L Hematology CBC w Diff NO MAN DIFF REQ WBC (4.8 - 10.8 /CUMM) 10.0 RBC (4.20 - 5.40 /CUMM) 3.34 L Hgb (12.0 - 16.0 G/DL) 9.9 L Hct (37 - 47 %) 29.7 L MCV (81.0 - 99.0 FL) 89.0 MCH (27.0 - 31.0 PG) 29.5 MCHC (33.0 - 37.0 G/DL) 33.2 RDW (11.5 - 14.5 %) 15.5 H Plt Count (130 - 400 /CUMM) 208 MPV (7.4 - 10.4 FL) 8.4 Gran % (42.2 - 75.2 %) 78.9 H Lymphocytes % (20.5 - 51.1 %) 11.2 L Monocytes % (1.7 - 9.3 %) 7.9 Eosinophils % (0 - 5 %) 1.8 Basophils % (0.0 - 2.0 %) 0.2 Absolute Granulocytes (1.4 - 6.5 /CUMM) 7.9 H Absolute Lymphocytes (1.2 - 3.4 /CUMM) 1.1 L Absolute Monocytes (0.10 - 0.60 /CUMM) 0.8 H Absolute Eosinophils (0.0 - 0.7 /CUMM) 0.2 Absolute Basophils (0.0 - 0.2 /CUMM) 0 02/06 02/06 02/06 1213 0900 0625 Chemistry Lactic Acid (0.7 - 2.1 mmol/L) 0.7 Magnesium (1.6 - 2.3 mg/dL) 1.3 L Troponin I (< 0.11 ng/ml) 0.19 *H Urines Urinalysis LIGHT H Urine Color (YEL,AMB,STR) YEL Urine Clarity (CLEAR) CLEAR Urine pH (5.0 - 8.0) 6.0 Ur Specific [place] (1.001 - 1.035) 1.015 Urine Protein (NEG,<30 MG/DL) TRACE H Urine Ketones (NEG) NEG Urine Nitrite (NEG) NEG Urine Bilirubin (NEG) NEG Urine Urobilinogen (0.1 - 1.0 EU/dl) 0.2 Ur Leukocyte Esterase (NEG) TRACE H Ur Microscopic SEDIMENT EXAMINED Urine RBC (0 - 5 /HPF) RARE Urine WBC (0 - 2 /HPF) RARE Ur Epithelial Cells (NONE,FEW) FEW Urine Bacteria (NEG/NONE) RARE H Hyaline Casts (0/LPF) RARE H Urine Hemoglobin (NEG) TRACE-INTACT Urine Glucose (N MG/DL) NEG 02/06 02/06 02/06 0625 0544 0352 Chemistry Sodium (137 - 145 mmol/L) 135 L Potassium (3.5 - 5.1 mmol/L) 3.7 Chloride (98 - 107 mmol/L) 112 H Carbon Dioxide (22 - 30 mmol/L) 9 *L Anion Gap (5 - 16) 14 BUN (7 - 17 mg/dL) 56 H Creatinine (0.5 - 1.0 mg/dL) 4.0 H Estimated GFR (>60 ml/min) 11 L BUN/Creatinine Ratio (7 - 25 %) 14.0 Lactic Acid Cancelled Troponin I (< 0.11 ng/ml) < 0.01 Hematology CBC w Diff NO MAN DIFF REQ WBC (4.8 - 10.8 /CUMM) 13.8 H RBC (4.20 - 5.40 /CUMM) 3.64 L Hgb (12.0 - 16.0 G/DL) 10.8 L Hct (37 - 47 %) 32.4 L MCV (81.0 - 99.0 FL) 89.1 MCH (27.0 - 31.0 PG) 29.6 MCHC (33.0 - 37.0 G/DL) 33.2 RDW (11.5 - 14.5 %) 15.6 H Plt Count (130 - 400 /CUMM) 224 MPV (7.4 - 10.4 FL) 8.6 Gran % (42.2 - 75.2 %) 89.1 H Lymphocytes % (20.5 - 51.1 %) 6.2 L Monocytes % (1.7 - 9.3 %) 3.8 Eosinophils % (0 - 5 %) 0.6 Basophils % (0.0 - 2.0 %) 0.3 Absolute Granulocytes (1.4 - 6.5 /CUMM) 12.3 H Absolute Lymphocytes (1.2 - 3.4 /CUMM) 0.9 L Absolute Monocytes (0.10 - 0.60 /CUMM) 0.5 Absolute Eosinophils (0.0 - 0.7 /CUMM) 0.1 Absolute Basophils (0.0 - 0.2 /CUMM) 0 Serology C. difficile Tox B Gene Pending 02/06 014 Chemistry Sodium (137 - 145 mmol/L) 128 L Potassium (3.5 - 5.1 mmol/L) 4.6 Chloride (98 - 107 mmol/L) 95 L Carbon Dioxide (22 - 30 mmol/L) 15 L Anion Gap (5 - 16) 19 H BUN (7 - 17 mg/dL) 73 H Creatinine (0.5 - 1.0 mg/dL) 5.9 *H Estimated GFR (>60 ml/min) 7 L BUN/Creatinine Ratio (7 - 25 %) 12.4 Glucose (65 - 99 mg/dL) 81 Calcium (8.4 - 10.2 mg/dL) 9.2 Magnesium (1.6 - 2.3 mg/dL) 1.4 L Total Bilirubin (0.2 - 1.3 mg/dL) 0.3 AST (14 - 36 U/L) 19 ALT (9 - 52 U/L) 28 Alkaline Phosphatase (<127 U/L) 100 Troponin I (< 0.11 ng/ml) < 0.01 Total Protein (6.3 - 8.2 g/dL) 6.2 L Albumin (3.5 - 5.0 g/dL) 3.5 Globulin (1.9 - 4.2 gm/dL) 2.7 Albumin/Globulin Ratio (1.1 - 2.2 %) 1.3 Lipase (23 - 300 U/L) 509 H Hematology CBC w Diff MAN DIFF ORDERED WBC (4.8 - 10.8 /CUMM) 17.5 H RBC (4.20 - 5.40 /CUMM) 4.16 L Hgb (12.0 - 16.0 G/DL) 12.3 Hct (37 - 47 %) 36.8 L MCV (81.0 - 99.0 FL) 88.6 MCH (27.0 - 31.0 PG) 29.7 MCHC (33.0 - 37.0 G/DL) 33.5 RDW (11.5 - 14.5 %) 15.1 H Plt Count (130 - 400 /CUMM) 276 MPV (7.4 - 10.4 FL) 8.9 Gran % (42.2 - 75.2 %) 85.9 H Lymphocytes % (20.5 - 51.1 %) 5.5 L Monocytes % (1.7 - 9.3 %) 6.8 Eosinophils % (0 - 5 %) 1.5 Basophils % (0.0 - 2.0 %) 0.3 Absolute Granulocytes (1.4 - 6.5 /CUMM) 15.0 H Segmented Neutrophils (42.2 - 75.2 %) 82 H Band Neutrophils (0.0 - 5.0 %) 2 Absolute Lymphocytes (1.2 - 3.4 /CUMM) 1.0 L Lymphocytes (20.5 - 51.1 %) 10 L Monocytes (1.7 - 9.3 %) 3 Absolute Monocytes (0.10 - 0.60 /CUMM) 1.2 H Eosinophils (0 - 5.0 %) 3 Absolute Eosinophils (0.0 - 0.7 /CUMM) 0.3 Absolute Basophils (0.0 - 0.2 /CUMM) 0.1 Platelet Estimate (ADEQUATE) ADEQUATE Normocytic RBCs VERIFIED Normochromic RBCs VERIFIED Imaging/Other Studies: CT scan: IMPRESSION: Colonic diverticulosis and diverticulitis without drainable fluid collections. Status post cholecystectomy. Assessment/Plan Assessment/Recommendations: Diarrhea with sepsis. The patient has improved markedly with IV ceftriaxone and metronidazole, and oral vancomycin, in empiric therapy of C. difficile associated colitis. The CT scan is consistent with colitis more so than diverticulitis (diffuse stranding in the pericolonic area). This would indeed be an unusual presentation for diverticulitis (no pain, hypotension despite uncomplicated disease, negative blood cultures). Nevertheless given marked improvement, would not stop gram-negative coverage at this time. Recommendations * Continue current antimicrobial therapy * Await C. difficile PCR * Further evaluation of antecedent diarrhea, probably as outpatient. Would especially want to rule out underlying colitis. Copies To: Lauren VERA,Handy Oliveros. Consult Acknowledgment - Thank you for your consult request.
[2018-02-07 23:46] LABS: C.DIFFICILE TOXIN B QL PCR NOT DETECTED (NOT DETECTED)
[2018-02-08] VITALS: BP 118/78
[2018-02-08 04:50] LABS: ABSOLUTE BASOPHIL COUNT 0 /CUMM (0.0-0.2); ABSOLUTE EOSINOPHIL COUNT 0.2 /CUMM (0.0-0.7); ABSOLUTE GRANULOCYTE CT 4.6 /CUMM (1.4-6.5); ABSOLUTE LYMPH COUNT 1.6 /CUMM (1.2-3.4); ABSOLUTE MONOCYTE COUNT 0.6 /CUMM (0.10-0.60); BASOPHIL % 0.4 % (0.0-2.0); GRANULOCYTE % 65.3 % (42.2-75.2); HEMATOCRIT 28.8 % (37-47); MEAN CORPUSCULAR HGB 29.4 PG (27.0-31.0); MEAN CORPUSCULAR HGB CONC 32.6 G/DL (33.0-37.0); MEAN PLATELET VOLUME 8.9 FL (7.4-10.4); PLATELET COUNT 212 /CUMM (130-400); RBC DISTRIBUTION WIDTH 15.4 % (11.5-14.5); WHITE BLOOD CELL COUNT 7.1 /CUMM (4.8-10.8)
--- NOTE | 2018-02-08 07:01 | PN- Resident CRCU ---
[facility]700: Subjective HPI/CRCU Issues: Diarrhea and Sepsis 24 Hour Events: No acute events overnight. Patient continues to have loose bowel movements. States she had 6 BM since yesterday. Her C.diff toxin and PCR were negative. Objective Vital Signs & I&O Last 8 Hrs of Vitals and I&O: . Exam General Appearance: no apparent distress, alert, awake, comfortable Head: atraumatic, normal appearance Respiratory: normal breath sounds, chest non-tender, lungs clear Cardiovascular: regular rate/rhythm Gastrointestinal: soft, non-tender Extremities: no edema Cranial Nerves: normal hearing, normal speech Skin: intact, normal color Skin Temp/Moisture Exam: Warm/Dry Sepsis Skin Exam (color): Normal for Ethnicity Current Medications: Current Medications Sig/Francoise Start time Last Medication Dose Route Stop Time Status Admin Aspirin 81 MG DAILY 02/06 1430 AC 02/07 PO 0827 Atorvastatin Calcium 40 MG 1700 02/06 1700 AC 02/07 PO 1725 Ceftriaxone Sodium 1,000 MG DAILY 02/07 0900 AC 02/07 IV 0845 Dextrose/Sodium 1,000 ML Q13H 02/07 1045 AC 02/08 Chloride IV 0321 Famotidine 20 MG DAILY 02/06 1446 AC 02/07 PO 0827 Heparin Sodium 5,000 UNIT Q8 02/06 1400 AC 02/08 (Porcine) SC 0602 Insulin Aspart 0 TIDAC 02/06 1200 AC SC Lorazepam 0.5 MG ONCE ONE 02/07 1900 DC 02/07 PO 02/07 1901 2135 Magnesium Sulfate 1 GM Q2H 02/08 0715 AC Dextrose/Water 100 ML IV 02/08 1114 Magnesium Sulfate 1 GM ONCE ONE 02/07 0715 DC 02/07 Dextrose/Water 100 ML IV 02/07 1114 1019 Metronidazole 500 MG IQ8 02/06 0800 AC 02/08 N/A 1 UNIT IV 0006 Norepinephrine 4 MG Q24H 02/06 0600 DC 02/06 Sodium Chloride 250 ML IV 0918 Nystatin 5 ML 4 TIMES/DAY 02/07 1300 AC 02/07 PO 2135 Ondansetron HCl 4 MG ONCE ONE 02/07 0845 DC 02/07 IV 02/07 0846 0845 Sodium Bicarbonate 1,300 MG TID 02/06 1400 AC 02/07 PO 2135 Sodium Chloride 1,000 ML Q13H 02/06 1915 DC 02/06 IV 02/07 0814 2105 Vancomycin HCl 500 MG Q6 02/06 0600 AC 02/08 PO 0602 Impression/Plan Impression/Problem List Impression: 72-year-old female with past medical history of hypertension, hyperlipidemia, diverticulitis, recurrent UTIs was brought in by family with chief complaint of severe diarrhea since past 3-4 days. Assessment: 1. Sepsis - Hypotension requiring pressors, leukocytosis 2. Diarrhea 3. Non-anion gap metabolic acidosis likely due to diarrhea - resolved 4. JASMEET - likely due to dehydration and lisinopril - resolved 5. Hyponatremia - resolved 6. History of Hypertension and Hyperlipidemia Plan: * Stable to be downgraded to general medicine. * Her kidney function has returned to normal. JASMEET was likely prerenal in the setting of dehydration. * C.diff toxin and PCR was negative. * Follow up blood cultures. No growth so far * Discontinue oral Vancomycin * Continue IV Ceftriaxone and IV metronidazole 500mg q8. * Discontinue sodium bicarb tablets as her acidosis has resolved. * Hold lisinopril. Can likely be restarted tomorrow if renal function remains stable. * GI input appreciated. * Diet: Regular * DVT Prophylaxis: SC Heparin * Code Status: Full Code Problem List: 1. Acute renal failure Pain Ratin Tomorrow's Labs & Rationales: CBC, ICU bundle Plan DVT/Prophylaxis: mechanical, pharmacological Malinda VERA,[facility] 02/08/18 0909: Attending MD Review Statement Attending Sign Off Attending Cosign Statement: I have: examined this patient, [facility] data, personally reviewd images, discussd w/resident/PA/ASSEMBLY CLEANER, discussed mgmt plan w/carl, discussed mgmt plan w/CM, discussed mgmt plan w/pt, agreed w/resident/PA/ASSEMBLY CLEANER, amended to note. Other Findings: Much improved seen and examined independently Diarrhea ongoing On abx Cdiff neg General Appearance Alert, Oriented X3, Cooperative, Moderate Distress Skin No Rashes, No Breakdown Skin Temp/Moisture Exam: Cool/Dry Sepsis Skin Exam (color): Normal for Ethnicity, Pale HEENT Atraumatic, PERRLA, EOMI, tle in place Neck Supple, No JVD, No LAD Cardiovascular Regular Rate, Normal S1, Normal S2 Lungs Clear to Auscultation, Normal Air Movement Abdomen Normal Bowel Sounds, Soft, No Tenderness Neurological Normal Speech Extremities No Clubbing, No Cyanosis (Weak pulses) This patient is a 72-year-old white female with a significant past medical history for hypertension, lipidemia, diverticulosis, gout, depression/anxiety and osteo-arthritis. She presented to the emergency department with a four-day history of nausea vomiting diarrhea. She was started on Bactrim 5 days prior to admission for urinary tract infection. She then developed frequent loose watery stools. Upon evaluation in the emergency department she was found to have an elevated white blood cell count to 17.5 and significant hypotension. Her BUN is 73 and creatinine is 5.9. Lactic acid is pending. CT scan of her abdomen demonstrates colonic diverticulosis and diverticulitis without drainable fluid collections. The patient was given a dose of ceftriaxone and started on fulminant C. difficile protocol with IV metronidazole and oral vancomycin. Cultures pending. Currently in the unit with a central line placed this am. ISSUES * Ongoing diarrhea jessy for C. difficile, with resolving sepsis, hypotension and multiple organ dysfunction- unknown etiology, GI onboard * Resolved Acute renal failure due to dehydration/ diarrhea/ compounded by RASS issues (pt was on lisinopril) * History of diverticulosis with no significant diverticulitis * History of anxiety and depression which appears stable * Resolved acidosis * Diabetes * Anemia of unknown etiology * History of hypertension, hyperlipidemia, recurrent UTI in the past, urine culture neg * Morbid obesity with severe DJD pending knee replacement PLAN/RECOMMENDATION Continue IV fluids, and dc later Await cultures Cont all abx and dc vanco Fingerstick glucose and cover with sliding scale OOB to chair We will follow closely
[2018-02-08 08:00] VITALS: BP 130/80
[2018-02-08 14:30] VITALS: BP 124/76
[2018-02-08 21:23] VITALS: BP 132/68
[2018-02-09 06:20] VITALS: BP 146/88
--- NOTE | 2018-02-09 07:06 | PN- Housestaff ---
Alber Barillas 02/09/18 0706: Subjective Follow-up For: septic shock due to dehydration Complaints: no complaints Subjective: Patient was seen and examined at the bedside. No acute events overnight. Patient reports that her two most recent BMs were closer to her baseline consistency. Patient in good spirits. Review of Systems Constitutional: Reports: no symptoms, see HPI. Objective Last 24 Hrs of Vital Signs/I&O Vital Signs Date Time Temp Pulse Resp B/P B/P Pulse O2 O2 Flow FiO2 Mean Ox Delivery Rate 02/09 1416 97.2 89 20 118/90 100 Room Air 02/09 0620 98.5 74 18 146/88 99 Room Air 02/08 2123 98.6 90 18 132/68 100 Room Air Intake & Output 02/09 1600 02/09 0800 02/09 0000 Intake Total 900 600 600 Output Total Balance 900 600 600 Intake, IV 600 600 Intake, Oral 900 Number 1 2 Bowel Movements Physical Exam General Appearance: Alert, Oriented X3, Cooperative, No Acute Distress Skin: No Rashes, No Breakdown Skin Temp/Moisture Exam: Warm/Dry HEENT: Atraumatic, PERRLA, EOMI, Mucous Membr. moist/pink Neck: Supple, No JVD, No thryomegaly Lymphatic: Axillary nl, Cervical nl Cardiovascular: Regular Rate, Normal S1, Normal S2, No Murmurs Lungs: Clear to Auscultation, Normal Air Movement Abdomen: Normal Bowel Sounds, Soft, No Tenderness, No Hepatospenomegaly Neurological: Normal Speech, Strength at 5/5 X4 Ext, Normal Tone, Sensation Intact Extremities: No Clubbing, No Cyanosis, edema, nonpitting x4 ext Vascular: Normal Pulses, Pulses Symmetrical Current Medications: Current Medications Sig/Francoise Start time Last Medication Dose Route Stop Time Status Admin Acetaminophen 650 MG ONCE ONE 02/085 DC PO 02/08 2116 Aspirin 81 MG DAILY 02/06 1430 AC 02/09 PO 0849 Atorvastatin Calcium 40 MG 1700 02/06 1700 AC 02/09 PO 1707 Calcium Carbonate 500 MG ONCE ONE 02/09 0845 DC 02/09 PO 02/09 0846 0851 Ceftriaxone Sodium 1,000 MG DAILY 02/07 0900 DC 02/08 IV 0922 Ciprofloxacin 500 MG BID 02/09 2100 AC PO 02/13 205 Dextrose/Sodium 1,000 ML Q13H 02/07 1045 DC 02/08 Chloride IV 2240 Famotidine 20 MG DAILY 02/06 1446 AC 02/09 PO 0850 Heparin Sodium 5,000 UNIT Q8 02/06 1400 AC 02/09 (Porcine) SC 1322 Insulin Aspart 0 TIDAC 02/06 1200 AC SC Loperamide HCl 2 MG Q6P PRN 02/09 1100 AC PO Lorazepam 0.5 MG AT BEDTIME NEED.. 02/09 1445 AC PO 02/16 1444 Magnesium Oxide 400 MG BID 02/09 2100 AC PO Melatonin 5 MG AT BEDTIME 02/09 2100 DC PO Melatonin 5 MG AT BEDTIME 02/08 2215 DC 02/08 PO 2312 Metronidazole 500 MG TID 02/09 1200 AC 02/09 PO 1321 Metronidazole 500 MG IQ8 02/06 0800 DC 02/08 N/A 1 UNIT IV 2312 Nystatin 5 ML 4 TIMES/DAY 02/07 1300 AC 02/09 PO 1707 Last 24 Hrs of Lab/Brennan Results Last 24 Hrs of Labs/Mics: Laboratory Tests 02/09/18 0838: Anion Gap 12, Estimated GFR > 60, BUN/Creatinine Ratio 18.3, Phosphorus 2.8, Magnesium 1.4 L, CBC w Diff NO MAN DIFF REQ, RBC 3.90 L, MCV 88.9, MCH 29.7, MCHC 33.4, RDW 15.6 H, MPV 8.8, Gran % 65.4, Lymphocytes % 24.2, Monocytes % 6.3, Eosinophils % 3.1, Basophils % 1.0, Absolute Granulocytes 4.8, Absolute Lymphocytes 1.8, Absolute Monocytes 0.5, Absolute Eosinophils 0.2, Absolute Basophils 0.1 Assessment/Plan Assessment: 72 year old white female w pmh significiant for HTN, HLD, diverticulosis, gout, depression/anxiety and osteoarthritis. She presented to the ER w/ a four day history of nausea, vomiting and diarrhea. She was admitted to the ICU for severe dehydration and septic hypovolemic shock. Yesterday she was transferred to the general medicine floor as her symptoms had stabilized. Problem list/plan: Ongoing diarrhea -negative for c.diff, w/ resolving hypotension and multiple organ dysfunction -dc'ed fluids now that patient is on diet -cont abx - changed to cipro and flagyl PO -resolved acidosis Chronic medical conditions (upcoming DJD, diabetes, etc) -continue home medications -accu-check glucose and cover with sliding scale DVT prophylaxis: subcu heparin and ALPS Regular diet Patient is full code Problem List: 1. Acute hypotension 2. Acute myocardial ischemia 3. Sepsis Pain Ratin Pain Location: none Pain Goal: Remain pain free Pain Plan: tylenol as needed Tomorrow's Labs & Rationales: bep and magnesium Felipe Geiger 02/09/18 1125: Attending MD Review Statement Attending Statement Attending MD Statement: examined this patient, discuss w/resident/PA/SUPERVISOR SCENIC ARTS, agreed w/resident/PA/SUPERVISOR SCENIC ARTS, discussed with family, reviewed EMR data (avail), discussed with nursing, discussed with case mgmt, reviewed images, amended to note Attending Assessment/Plan: 72 o/f with pmh of hypertension, hld, diverticultis recurrent UTIs admitted to ICU for severe diarrhea and hypotensive shock requiring pressor support briefly started empirically on antibiotics for unknown etiology for diarrhea. Her JASMEET has resolved and transferred to [facility]. Overnight events: Still has loose stools. No blood. Vitals stable. Patient receving antibiotics however cultures so far remain negative. Follow GI recomemndations for discharge planning. Consider Colonscopy vs flex sigmoid if diarhea persists. Anticipate discharge in next 24 hrs as her clinical condition improves. DRY PRIMER POWDER BLENDER Gastroenetrology Nephrology Critical care
[2018-02-09 09:00] LABS: ABSOLUTE BASOPHIL COUNT 0.1 /CUMM (0.0-0.2); ABSOLUTE EOSINOPHIL COUNT 0.2 /CUMM (0.0-0.7); ABSOLUTE GRANULOCYTE CT 4.8 /CUMM (1.4-6.5); ABSOLUTE LYMPH COUNT 1.8 /CUMM (1.2-3.4); ABSOLUTE MONOCYTE COUNT 0.5 /CUMM (0.10-0.60); EOSINOPHIL % 3.1 % (0-5); GRANULOCYTE % 65.4 % (42.2-75.2); MEAN CORPUSCULAR HGB 29.7 PG (27.0-31.0); MEAN CORPUSCULAR HGB CONC 33.4 G/DL (33.0-37.0); MEAN CORPUSCULAR VOLUME 88.9 FL (81.0-99.0); MEAN PLATELET VOLUME 8.8 FL (7.4-10.4); PLATELET COUNT 266 /CUMM (130-400); RBC DISTRIBUTION WIDTH 15.6 % (11.5-14.5); WHITE BLOOD CELL COUNT 7.3 /CUMM (4.8-10.8)
[2018-02-09 09:10] LABS: HEMATOCRIT 34.7 % (37-47)
--- NOTE | 2018-02-09 10:29 | Transfer of Care Summary ---
Hospital Course Course Hospital Course: HPI: 72-year-old female with past medical history of hypertension, hyperlipidemia, diverticulitis, recurrent UTIs, was brought in by family with a chief complaint of severe diarrhea since past 3 days prior to admission. Patient stated that she was in her usual state of health until last week when she developed symptoms of burning micturition, urgency and hesitancy. She went to her primary care physician and was given Bactrim which was on 02/01/18. Patient states that 2 days after that, she developed severe diarrhea Hospital Course: On arrival to the ED, the patient was found to be hypotensive with lowest reading (64/32), pulse of 90 and an elevated white count of 17.5. She was hydrated with IVF NS receiving up to 8L with refractory hypotension. A central line was thus placed in the ICU and the patient was started on Norepinephrine. She was started on oral Vancomycin and IV Flagyl for presumed severe C.diff diarrhea along with IV Ceftriaxone for possible GNR coverage. Below is a list of conditions that were addressed: 1. Diarrhea and Hypotension Patient was suspected to have C.diff. However, her stools studies for C.diff toxin and PCR were negative. Her oral vancomycin was thus discontinued. Stool studies were also negative for other enteric bacteria/protozoal infection. A rectal tube was initially placed as the patient was having multiple episodes of loose stools, but as her condition improved, this was removed. With improvement in her blood pressure, the norepinephrine was slowly weaned off. Her white count also trended down. It is unclear if the patient had true sepsis or the white count was due to hemoconcentration, the latter seems more likely. She is still on IV Ceftriaxone and Flagyl. Please reassess the patient for the need for continued antibiotics. Her initial CT abd/pelvis on admission showed fat stranding throughout the colon concerning for diverticulitis. However, the patient has had no fevers or abdominal pain. I reviewed the images with radiology and it appears she had similar subtle appearance of fat stranding on her previous CT in February 2017. Clinically correlating, it does not appear the patient has any evidence of diverticulitis. 2. Non-anion gap metabolic acidosis Her HCO3 was found to be 7 on admission without an anion gap. Her acidosis was likely secondary to severe diarrhea. Nephrology was consulted and patient was started on a bicarb drip along with sodium bicarb tablets. Once her acidosis resolved the sodium bicarb was discontinued. 3. JASMEET Elevated Cr of 5.9 on admission. This was likely prerenal and due to her lisinopril. Her lisinopril was put on hold on admission. With aggressive fluid hydration her Cr improved and trended down to baseline to 0.6. Her lisinopril may be restarted now. 4. Hyponatremia Serum Na of 128 on admission. Likely secondary to diarrhea. Improved with IVF. Current Na 142. NPPV: none Lines: Peripheral (central line was removed) Code Status: Full Code Assessment/Plan: .
[2018-02-09 14:16] VITALS: BP 118/90
--- NOTE | 2018-02-09 17:35 | PN- Gastroenterology ---
Assessment/Plan GI Assessment/Recommendations: Acute superimposed on chronic/recurrent diarrhea, with sepsis. Marked improvement. Recommendations * Cipro 500 mg by mouth twice a day and metronidazole 500 mg by mouth twice a day for 5 days. * Judicious use of loperamide * Regular diet * Further evaluation of antecedent diarrhea as outpatient. Would especially want to rule out underlying colitis. We will see the patient in office following discharge. Subjective Subjective: Improvement in diarrhea. No pain. Tolerating diet. Objective Vital Signs and I&Os Vital Signs Date Time Temp Pulse Resp B/P B/P Pulse O2 O2 Flow FiO2 Mean Ox Delivery Rate 02/09 1416 97.2 89 20 118/90 100 Room Air 02/09 0620 98.5 74 18 146/88 99 Room Air 02/08 2123 98.6 90 18 132/68 100 Room Air Intake & Output 02/09 1600 02/09 0400 02/08 1600 02/08 0400 02/07 1600 02/07 0400 Intake Total 4725 099 1039 975 2047 1215 Output Total 2145 160 4258 1450 Balance 1500 600 291 275 497 -235 Intake, IV 304 385 5516 555 1547 815 Intake, Oral 900 605 420 500 400 Number 3 7 4 3 1 Bowel Movements Output, Stool 50 50 Output, Urine 4879 906 7371 1450 Patient 241 lb Weight Physical Exam: Abdomen soft, nondistended, nontender. Current Medications: Current Medications Sig/Francoise Start time Last Medication Dose Route Stop Time Status Admin Acetaminophen 650 MG ONCE ONE 02/085 DC PO 02/08 211 Aspirin 81 MG DAILY 02/06 1430 AC 02/09 PO 0849 Atorvastatin Calcium 40 MG 1700 02/06 1700 AC 02/09 PO 1707 Calcium Carbonate 500 MG ONCE ONE 02/09 0845 DC 02/09 PO 02/09 0846 0851 Ceftriaxone Sodium 1,000 MG DAILY 02/07 0900 DC 02/08 IV 0922 Ciprofloxacin 500 MG BID 02/09 2100 AC PO 02/13 2059 Dextrose/Sodium 1,000 ML Q13H 02/07 1045 DC 02/08 Chloride IV 2240 Famotidine 20 MG DAILY 02/06 1446 AC 02/09 PO 0850 Heparin Sodium 5,000 UNIT Q8 02/06 1400 AC 02/09 (Porcine) SC 1322 Insulin Aspart 0 TIDAC 02/06 1200 AC SC Loperamide HCl 2 MG Q6P PRN 02/09 1100 AC PO Lorazepam 0.5 MG AT BEDTIME NEED.. 02/09 1445 AC PO 02/16 1444 Magnesium Oxide 400 MG BID 02/09 2100 AC PO Melatonin 5 MG AT BEDTIME 02/09 2100 DC PO Melatonin 5 MG AT BEDTIME 02/08 2215 DC 02/08 PO 2312 Metronidazole 500 MG TID 02/09 1200 AC 02/09 PO 1321 Metronidazole 500 MG IQ8 02/06 0800 DC 02/08 N/A 1 UNIT IV 2312 Nystatin 5 ML 4 TIMES/DAY 02/07 1300 AC 02/09 PO 1707 Results Pertinent Lab Results: Laboratory Tests 02/09 02/08 0838 0430 Chemistry Sodium (137 - 145 mmol/L) 142 141 Potassium (3.5 - 5.1 mmol/L) 4.4 4.4 Chloride (98 - 107 mmol/L) 110 H 111 H Carbon Dioxide (22 - 30 mmol/L) 21 L 22 Anion Gap (5 - 16) 12 9 BUN (7 - 17 mg/dL) 11 18 H Creatinine (0.5 - 1.0 mg/dL) 0.6 0.6 Estimated GFR (>60 ml/min) > 60 > 60 BUN/Creatinine Ratio (7 - 25 %) 18.3 Glucose (65 - 99 mg/dL) 103 H Calcium (8.4 - 10.2 mg/dL) 8.9 Phosphorus (2.5 - 4.5 mg/dL) 2.8 2.2 L Magnesium (1.6 - 2.3 mg/dL) 1.4 L 1.5 L Total Bilirubin (0.2 - 1.3 mg/dL) 0.2 AST (14 - 36 U/L) 18 ALT (9 - 52 U/L) 33 Albumin (3.5 - 5.0 g/dL) 2.3 L Hematology CBC w Diff NO MAN DIFF REQ NO MAN DIFF REQ WBC (4.8 - 10.8 /CUMM) 7.3 7.1 RBC (4.20 - 5.40 /CUMM) 3.90 L 3.20 L Hgb (12.0 - 16.0 G/DL) 11.6 L 9.4 L Hct (37 - 47 %) 34.7 L 28.8 L MCV (81.0 - 99.0 FL) 88.9 90.0 MCH (27.0 - 31.0 PG) 29.7 29.4 MCHC (33.0 - 37.0 G/DL) 33.4 32.6 L RDW (11.5 - 14.5 %) 15.6 H 15.4 H Plt Count (130 - 400 /CUMM) 266 212 MPV (7.4 - 10.4 FL) 8.8 8.9 Gran % (42.2 - 75.2 %) 65.4 65.3 Lymphocytes % (20.5 - 51.1 %) 24.2 22.9 Monocytes % (1.7 - 9.3 %) 6.3 8.4 Eosinophils % (0 - 5 %) 3.1 3.0 Basophils % (0.0 - 2.0 %) 1.0 0.4 Absolute Granulocytes (1.4 - 6.5 /CUMM) 4.8 4.6 Absolute Lymphocytes (1.2 - 3.4 /CUMM) 1.8 1.6 Absolute Monocytes (0.10 - 0.60 /CUMM) 0.5 0.6 Absolute Eosinophils (0.0 - 0.7 /CUMM) 0.2 0.2 Absolute Basophils (0.0 - 0.2 /CUMM) 0.1 0 02/07 02/07 02/06 0620 0000 1745 Chemistry Sodium (137 - 145 mmol/L) 137 135 L Potassium (3.5 - 5.1 mmol/L) 4.4 3.8 Chloride (98 - 107 mmol/L) 110 H 108 H Carbon Dioxide (22 - 30 mmol/L) 19 L 17 L Anion Gap (5 - 16) 9 10 BUN (7 - 17 mg/dL) 33 H 46 H Creatinine (0.5 - 1.0 mg/dL) 1.4 H 2.5 H Estimated GFR (>60 ml/min) 37 L 19 L Glucose (65 - 99 mg/dL) 115 H 112 H Calcium (8.4 - 10.2 mg/dL) 8.6 8.3 L Phosphorus (2.5 - 4.5 mg/dL) 2.8 4.3 Magnesium (1.6 - 2.3 mg/dL) 1.6 1.8 Total Bilirubin (0.2 - 1.3 mg/dL) 0.2 0.1 L AST (14 - 36 U/L) 21 21 ALT (9 - 52 U/L) 32 30 Troponin I (< 0.11 ng/ml) 0.31 *H 0.32 *H Albumin (3.5 - 5.0 g/dL) 2.4 L 2.4 L Hematology CBC w Diff NO MAN DIFF REQ WBC (4.8 - 10.8 /CUMM) 10.0 RBC (4.20 - 5.40 /CUMM) 3.34 L Hgb (12.0 - 16.0 G/DL) 9.9 L Hct (37 - 47 %) 29.7 L MCV (81.0 - 99.0 FL) 89.0 MCH (27.0 - 31.0 PG) 29.5 MCHC (33.0 - 37.0 G/DL) 33.2 RDW (11.5 - 14.5 %) 15.5 H Plt Count (130 - 400 /CUMM) 208 MPV (7.4 - 10.4 FL) 8.4 Gran % (42.2 - 75.2 %) 78.9 H Lymphocytes % (20.5 - 51.1 %) 11.2 L Monocytes % (1.7 - 9.3 %) 7.9 Eosinophils % (0 - 5 %) 1.8 Basophils % (0.0 - 2.0 %) 0.2 Absolute Granulocytes (1.4 - 6.5 /CUMM) 7.9 H Absolute Lymphocytes (1.2 - 3.4 /CUMM) 1.1 L Absolute Monocytes (0.10 - 0.60 /CUMM) 0.8 H Absolute Eosinophils (0.0 - 0.7 /CUMM) 0.2 Absolute Basophils (0.0 - 0.2 /CUMM) 0
[2018-02-09 21:35] VITALS: BP 150/80
[2018-02-10 06:40] VITALS: BP 142/72
--- NOTE | 2018-02-10 07:09 | PN- Housestaff ---
Alber Barillas 02/10/18 0708: Subjective Follow-up For: Dehydration and hypovolemic shock secondary to diarrhea Complaints: no complaints Subjective: Patient seen and examined at the bedside. Patient appears very well, in good spirits. Looking forward to going home, no acute events overnight, no complaints. Review of Systems Constitutional: Reports: no symptoms. EENTM: Reports: no symptoms. Cardiovascular: Reports: no symptoms. Respiratory: Reports: no symptoms. Gastrointestinal: Reports: no symptoms. Genitourinary: Reports: no symptoms. Musculoskeletal: Reports: no symptoms. Skin: Reports: no symptoms. Neurological/Psychological: Reports: no symptoms. Hematologic/Endocrine: Reports: no symptoms. Objective Last 24 Hrs of Vital Signs/I&O Vital Signs Date Time Temp Pulse Resp B/P B/P Pulse O2 O2 Flow FiO2 Mean Ox Delivery Rate 02/10 0640 98.3 81 18 142/72 98 Room Air 02/09 2135 97.7 78 18 150/80 98 02/09 1416 97.2 89 20 118/90 100 Room Air Intake & Output 02/10 1600 02/10 0800 02/10 0000 Intake Total 360 360 Output Total Balance 360 360 Intake, Oral 360 360 Physical Exam General Appearance: Alert, Oriented X3, Cooperative, No Acute Distress Skin: No Rashes, No Breakdown, No Significant Lesion Skin Temp/Moisture Exam: Warm/Dry HEENT: Atraumatic, PERRLA, EOMI, Mucous Membr. moist/pink Neck: Supple, No JVD, No thryomegaly Lymphatic: Axillary nl, Cervical nl Cardiovascular: Regular Rate, Normal S1, Normal S2, No Murmurs, Gallops, Rubs Lungs: Clear to Auscultation, Normal Air Movement Abdomen: Normal Bowel Sounds, Soft, No Tenderness, No Hepatospenomegaly, No Masses Neurological: Normal Gait, Normal Speech, Strength at 5/5 X4 Ext, Normal Tone, Sensation Intact Extremities: No Clubbing, No Cyanosis, Normal Pulses, nonpitting edema all four quadrants Vascular: Normal Pulses, Pulses Symmetrical Current Medications: Current Medications Sig/Francoise Start time Last Medication Dose Route Stop Time Status Admin Aspirin 81 MG DAILY 02/06 1430 AC 02/10 PO 0950 Atorvastatin Calcium 40 MG 1700 02/06 1700 AC 02/09 PO 170 Ciprofloxacin 500 MG BID 02/09 2100 AC 02/10 PO 02/13 2059 0950 Famotidine 20 MG DAILY 02/06 1446 AC 02/10 PO 0745 Heparin Sodium 5,000 UNIT Q8 02/06 1400 AC 02/10 (Porcine) SC 1350 Insulin Aspart 0 TIDAC 02/06 1200 AC SC Loperamide HCl 2 MG Q6P PRN 02/09 1100 AC PO Lorazepam 0.5 MG AT BEDTIME NEED.. 02/09 1445 AC 02/09 PO 02/16 1444 2158 Magnesium Oxide 400 MG BID 02/09 2100 AC 02/10 PO 0950 Melatonin 5 MG AT BEDTIME 02/08 2215 DC 02/08 PO 2312 Metronidazole 500 MG TID 02/09 1200 AC 02/10 PO 1349 Nystatin 5 ML 4 TIMES/DAY 02/07 1300 AC 02/10 PO 1239 Last 24 Hrs of Lab/Brennan Results Last 24 Hrs of Labs/Mics: Laboratory Tests 02/10/18 0708: Anion Gap 9, Estimated GFR > 60, BUN/Creatinine Ratio 18.3, Magnesium 1.2 L Assessment/Plan Assessment: 72 year old white female w pmh significiant for HTN, HLD, diverticulosis, gout, depression/anxiety and osteoarthritis. She presented to the ER w/ a four day history of nausea, vomiting and diarrhea. She was admitted to the ICU for severe dehydration and septic hypovolemic shock. Yesterday she was transferred to the general medicine floor as her symptoms had stabilized. Problem list/plan: Diarrhea - now resolved -negative for c.diff, w/ resolving hypotension and multiple organ dysfunction -dc'ed fluids now that patient is on diet -cont abx - changed to cipro and flagyl PO for 4 more days -resolved acidosis Chronic medical conditions (upcoming DJD, diabetes, etc) -continue home medications -accu-check glucose and cover with sliding scale DVT prophylaxis: subcu heparin and ALPS Regular diet Patient is full code Problem List: 1. Diarrhea 2. Acute hypotension Pain Ratin Pain Location: none Pain Goal: Remain pain free Pain Plan: none Tomorrow's Labs & Rationales: none Felipe Geiger 02/10/18 1157: Attending MD Review Statement Attending Statement Attending MD Statement: examined this patient, discuss w/resident/PA/PEARL DIGGER, agreed w/resident/PA/PEARL DIGGER, discussed with family, reviewed EMR data (avail), discussed with nursing, discussed with case mgmt, reviewed images, amended to note Attending Assessment/Plan: Patient is clinically improved and wants to go home. She will be discharged on PO antibiotics as per GI recommendations. She needs to follow up with GI as outpatient in 2 weeks of discharge. Also follow up with PCP in 1-2 weeks of discharge.
[2018-02-10] MEDS ORDERED: CIPRO500 M1 PO ×2 (07:22→10:16)
[2018-02-10] MEDS ORDERED: FLAGYL250 M1 PO ×2 (07:22→10:16)
--- NOTE | 2018-02-10 07:24 | Patient Discharge Instructions ---
Discharge Instructions General Discharge Information Special Instructions: - Please follow up with your primary care physician within 1-2 weeks of discharge. Inform your primary care physician of this admission to [facility]. -Please follow up with Dr. Cuenca (gastroenterology) within one week of discharge - Continue your current medications per discharge instructions. - Please watch for these problems: Fever, Chills, Nausea, Vomiting, Shortness of Breath, Productive Cough, Chest Pain/Discomfort, Abdominal Pain, Active Bleeding or Bloody urine/stool. Diet Continue normal diet: Yes Activity Full Activity/No Limits: Yes Acute Coronary Syndrome Inclusion Criteria At DC or during hospital stay patient has or had the following: ACS DIAGNOSIS No Discharge Core Measures Meds if any: Prescribed or Continued at Discharge Meds if any: NOT Prescribed or Continued at Discharge Congestive Heart Failure Inclusion Criteria At DC or during hospital stay patient has or had the following: CHF DIAGNOSIS No Discharge Core Measures Meds if any: Prescribed or Continued at Discharge Meds if any: NOT Prescribed or Continued at Discharge Cerebrovascular accident Inclusion Criteria At DC or during hospital stay patient has or had the following: CVA/TIA Diagnosis No Discharge Core Measures Meds if any: Prescribed or Continued at Discharge Meds if any: NOT Prescribed or Continued at Discharge Venous thromboembolism Inclusion Criteria VTE Diagnosis No VTE Type NONE VTE Confirmed by (Test) NONE Discharge Core Measures - Per Current guidelines, there needs to be overlap - treatment for the first 5 days of Warfarin therapy. - If discharged on Warfarin prior to 5 days of - overlap therapy, the patient will need to be - assessed for post discharge needs including - *Post discharge parental anticoagulation - *Warfarin and/or parental anticoagulation education - *Follow up date to check INR post discharge At least 5 days overlap therapy as Inpatient No Meds if any: Prescribed or Continued at Discharge Note: Overlap Therapy is Warfarin and Anticoagulant Meds if any: NOT Prescribed or Continued at Discharge
== END 2018-02-10 15:23 | disposition home health service (06) | DRG 872 ==
LOC: ERH 01:08 → 2NA 03:01 → ERHI 03:01 → CRI 03:01 → ENRESERV 03:44 → CRI 04:11 → ENTRNSPT 02-08 13:52 → EDTRNSPT 02-08 14:02 → EDTRNSPTSTS 02-08 14:02 → 2NA 02-08 14:23 → CMPTRNSPT 02-08 14:24 → 2NA 02-08 15:42 → ENPENDDIS 02-10 10:37 → ENTRNSPT 02-10 14:46 → EDTRNSPTSTS 02-10 15:19 → EDTRNSPT 02-10 15:19 → 2NA 02-10 15:23 → CMPTRNSPT 02-10 15:50
PROVIDERS: Emergency Medicine; Internal Medicine
PROC: 02HV33Z Insertion of Infusion Device into Superior Vena Cava, Percutaneous Approach (ICD-10-PCS; principal; 2018-02-06)
DX: A41.9 Sepsis, unspecified organism (principal); N17.9 Acute kidney failure, unspecified; Z68.41 Body mass index [BMI] 40.0-44.9, adult; E87.2 Acidosis; E87.1 Hypo-osmolality and hyponatremia; K52.9 Noninfective gastroenteritis and colitis, unspecified; R65.20 Severe sepsis without septic shock; E66.01 Morbid (severe) obesity due to excess calories; E83.42 Hypomagnesemia; I10 Essential (primary) hypertension; E78.5 Hyperlipidemia, unspecified; Z87.440 Personal history of urinary (tract) infections; I95.9 Hypotension, unspecified; I51.3 Intracardiac thrombosis, not elsewhere classified; Z88.0 Allergy status to penicillin; F32.9 Major depressive disorder, single episode, unspecified; F41.9 Anxiety disorder, unspecified; Z90.49 Acquired absence of other specified parts of digestive tract; D64.9 Anemia, unspecified; R19.7 Diarrhea, unspecified; E86.0 Dehydration; M10.9 Gout, unspecified
CPT/HCPCS: 2NASP; 87493; CCU; 36415; 36592; 71045; 74176; 81001; 82436; 87015; 87040; 87045; 87070; 87086; 87328; 87329; 87899; 87899-59; 93005; 93010; 93306; 96360; 96361; 99291; J0696; J1644; J2405; J3490; J7040; J7042; J7060